=== PATIENT | female | born 1940 | race African-American/Black ===

== ENCOUNTER 2017-03-07 18:00 | Emergency (ER) | payer MEDICARE, OTHER ==
[2017-03-07 19:21] VITALS: BP 156/74
[2017-03-07 19:36] LABS: ABSOLUTE EOSINOPHILS # (AUTO) 0.1 10^3/uL (0.0-0.6); ABSOLUTE LYMPHOCYTES (AUTO) 1.8 10^3/uL (0.5-4.7); ABSOLUTE MONOCYTES (AUTO) 0.7 10^3/uL (0.1-1.4); BASOPHILS % (AUTO) 0.6 % (0-2); HEMOGLOBIN 13.1 g/dL (12.0-15.5); HGB HCT DIFFERENCE -1.7; LYMPHOCYTES % (AUTO) 27.3 % (13-45); MEAN CORPUSCULAR HEMOGLOBIN 27.6 pg (27.0-33.4); MEAN CORPUSCULAR HGB CONC 32.1 g/dL (32.0-36.0); MEAN CORPUSCULAR VOLUME 86 fl (80-97); MONOCYTES % (AUTO) 10.7 % (3-13); RED BLOOD COUNT 4.77 10^6/uL (3.72-5.28); RED CELL DISTRIBUTION WIDTH 15.1 % (11.5-14.0); SEGMENTED NEUTROPHILS % (AUTO) 60.4 % (42-78); WHITE BLOOD COUNT 6.7 10^3/uL (4.0-10.5)
[2017-03-07 19:55] LABS: ANION GAP 15 (5-19); BLOOD UREA NITROGEN 31 mg/dL (7-20); CALCIUM 10.5 mg/dL (8.4-10.2); CARBON DIOXIDE 28 mmol/L (22-30); CHLORIDE 98 mmol/L (98-107); CREATININE RESULT 1.44 mg/dL (0.52-1.25); GLUCOSE 124 mg/dL (75-110); POTASSIUM 4.2 mmol/L (3.6-5.0); SODIUM 141.1 mmol/L (137-145)
--- NOTE | 2017-03-07 20:16 | ER Document Report ---
ED General - General Chief Complaint: Dizziness Stated Complaint: DIZZINESS Time Seen by Provider: 03/07/17 18:45 TRAVEL OUTSIDE OF THE [place] IN LAST 30 DAYS: No - HPI Patient complains to provider of: Dizziness Notes: Patient had episode of dizziness seen today PCPs office blood pressure was elevated patient states increased stress is that she has mites in her house currently is undergoing construction they are going to remove the carpet in the next 24 hours and begin hardwood floors. Patient states this is displaced her from her home. Patient is very distressed about this patient states that she had a very short episode of dizziness room spinning around however currently now is more calm and quiet and symptoms have resolved. Patient denies any chest pain hip pain trauma nausea vomiting fevers or chills. - Related Data Allergies/Adverse Reactions: iodine [Iodine] Allergy (Intermediate, Verified 03/07/17 18:44) Hives Iodinated Contrast- Oral and IV Dye [IV Dye, Iodine Containing] Allergy ( Verified 03/07/17 18:44) Past Medical History - Social History Smoking Status: Never Smoker Chew tobacco use (# tins/day): No Frequency of alcohol use: None Drug Abuse: None Family History: Reviewed & Not Pertinent Patient has suicidal ideation: No Patient has homicidal ideation: No - Past Medical History Cardiac Medical History: Reports: Hx Hypercholesterolemia, Hx Hypertension Endocrine Medical History: Reports: Hx Diabetes Mellitus Type 2 Renal/ Medical History: Reports: Hx Kidney Stones. Denies: Hx Peritoneal Dialysis Past Surgical History: Reports: Hx Section - Immunizations Hx Diphtheria, Pertussis, Tetanus Vaccination: No Review of Systems - Review of Systems Constitutional: Other - Dizziness EENT: No symptoms reported Cardiovascular: No symptoms reported Respiratory: No symptoms reported Gastrointestinal: No symptoms reported Genitourinary: No symptoms reported Female Genitourinary: No symptoms reported Musculoskeletal: No symptoms reported Skin: No symptoms reported Hematologic/Lymphatic: No symptoms reported Neurological/Psychological: No symptoms reported Physical Exam - Vital signs Vitals: Temp Pulse Resp BP Pulse Ox 98.3 F 70 20 149/76 H 98 03/07/17 18:21 03/07/17 18:21 03/07/17 18:21 03/07/17 18:21 03/07/17 18:21 Interpretation: Normal - General General appearance: Appears well, Alert - HEENT Head: Normocephalic, Atraumatic Eyes: Normal Pupils: PERRL - Respiratory Respiratory status: No respiratory distress Chest status: Nontender Breath sounds: Normal Chest palpation: Normal - Cardiovascular Rhythm: Regular Heart sounds: Normal auscultation Murmur: No - Abdominal Inspection: Normal Distension: No distension Bowel sounds: Normal Tenderness: Nontender Organomegaly: No organomegaly - Back Back: Normal, Nontender - Extremities General upper extremity: Normal inspection, Nontender, Normal color, Normal ROM , Normal temperature General lower extremity: Normal inspection, Nontender, Normal color, Normal ROM , Normal temperature, Normal weight bearing. No: Devon's sign - Neurological Neuro grossly intact: Yes Cognition: Normal Orientation: AAOx4 Donna Coma Scale Eye Opening: Spontaneous Donna Coma Scale Verbal: Oriented Donna Coma Scale Motor: Obeys Commands Winsted Coma Scale Total: 15 Speech: Normal Motor strength normal: LUE, RUE, LLE, RLE Sensory: Normal - Psychological Associated symptoms: Normal affect, Normal mood - Skin Skin Temperature: Warm Skin Moisture: Dry Skin Color: Normal Course - Re-evaluation Re-evalutation: 03/07/17 20:15 Patient lab work that showed increase in the patient's creatinine more likely due to dehydration. Orthostatics were negative. Patient will be discharged home no acute cause of dizziness more likely to dehydration or stress. Patient is encouraged follow-up with her primary care physician. - Vital Signs Vital signs: Temp Pulse Resp BP Pulse Ox 98.3 F 74 20 156/74 H 98 03/07/17 18:21 03/07/17 19:18 03/07/17 18:21 03/07/17 19:18 03/07/17 18:21 - Laboratory Result Diagrams: 03/07/17 19:18 03/07/17 19:18 Laboratory results interpreted by me: 03/07/17 03/07/17 19:18 19:18 RDW 15.1 H BUN 31 H Creatinine 1.44 H Est GFR ( Amer) 43 L Est GFR (Non-Af Amer) 36 L Glucose 124 H Calcium 10.5 H Discharge - Discharge Clinical Impression: Transient dizziness Condition: Good Disposition: HOME, SELF-CARE Instructions: Dizziness ([facility]) Additional Instructions: Your laboratory data shows no acute pathology. The show signs of slight dehydration with a recommend drinking plenty of water. More likely her dizziness and elevated blood pressure today were caused by the amount of stress that you are under right now. However recommend following up with your primary care physician. Return to the ER symptoms worsen. Your lab work does not show any signs of serious infection cardiac ischemia or electrolyte abnormalities.
--- NOTE | 2017-03-07 21:51 | EKG REPORT ---
SEVERITY:- ABNORMAL ECG - SINUS RHYTHM LEFT VENTRICULAR HYPERTROPHY ABNORMAL T, CONSIDER ISCHEMIA, INFERIOR LEADS : Confirmed by: Warren Millan 07-Mar-2017 21:51:38
== END 2017-03-07 20:43 | disposition home or self-care (01) ==
LOC: ER 18:00
DX: R42 Dizziness and giddiness (principal); I10 Essential (primary) hypertension; E11.9 Type 2 diabetes mellitus without complications; Z91.041 Radiographic dye allergy status
CPT/HCPCS: 36415; 80048; 84484; 85025; 93005; 93010; 99284

== ENCOUNTER → 2017-03-25 | Outpatient (CLI) | payer MEDICARE, OTHER | LOC: OD 16:07 | PROVIDERS: ATTEND Internal Medicine | DX: T78.40XD Allergy, unspecified, subsequent encounter (principal) | CPT/HCPCS: 36415; 86003 ==

== ENCOUNTER → 2017-04-16 | Outpatient (CLI) | payer MEDICARE, OTHER ==
--- NOTE | 2017-04-16 14:48 | WOMENS IMAGING REPORT ---
EXAM DESCRIPTION: 3D DX MAMMO BILAT COMPLETED DATE/TIME: 04/16/2017 10:49 am REASON FOR STUDY: HX OF BERAST CA; 1 YEAR FOLLOW UP COMPARISON: Multiple since 2011 TECHNIQUE: Standard craniocaudal and mediolateral oblique views of each breast recorded using digita l acquisition and breast tomosynthesis. Additional left breast 90 mediolateral view, left breast compression magnification views in the CC a nd MLO orientation LIMITATIONS: None. FINDINGS: RIGHT BREAST MASSES: No suspicious masses. CALCIFICATIONS: No new or suspicious calcifications. ARCHITECTURAL DISTORTION: None. DEVELOPING DENSITY: None. ASYMMETRY: None noted. OTHER: No other significant findings. LEFT BREAST MASSES: No suspicious masses. CALCIFICATIONS: No new or suspicious calcifications. ARCHITECTURAL DISTORTION: None. DEVELOPING DENSITY: None. ASYMMETRY: None noted. OTHER: There is left breast skin thickening post radiation therapy. Surgical clips in the far medial left breast Read with the assistance of CAD: .[facility] - R2 Cenova Version 1.3 .[facility] - R2 Cenova Version 1.3 .[facility] - R2 Cenova Version 2.4 [place] [place] Cenova Version 2.4 .[facility] - R2 Measurement Psychologist Version 9.2 IMPRESSION: No mammographic/tomosynthesis evidence for malignancy BREAST DENSITY: b. There are scattered areas of fibroglandular density. BIRAD: 2 Benign findings. RECOMMENDATION: RECOMMENDED FOLLOW UP: Please continue right breast screening, left breast diagnosti c mammograms/ tomosynthesis in April 2018 SPECIFIC INTERVENTION/IMAGING/CONSULTATION RECOMMENDED:No additional intervention/ imaging/consultati on needed at this time. COMMUNICATION:The negative/benign results were communicated to the patient. COMMENT: The patient has been notified of the results by letter per SA requirements. Additional no tification policies are in place for contacting patient with suspicious or incomplete findings. Quality ID #225: The [employer] recommends an annual screening mammogram for women aged 40 years or over. This facility utilizes a reminder system to ensure that all patients receive reminder letters, and/or direct phone calls for appointments. This includes reminders for routine scr eening mammograms, diagnostic mammograms, or other Breast Imaging Interventions when appropriate. Th is patient will be placed in the appropriate reminder system. The [employer] (ACR) has developed recommendations for screening MRI of the breast s in certain patient populations, to be used in conjunction with mammography. Breast MRI surveillanc e may be appropriate for women with more than 20% lifetime risk of developing breast cancer as deter mined by genetic testing, significant family history of the disease, or history of mantle radiation f or Hodgkins Disease. ACR Practice Guidelines 2008. DBT Technology DBT is a type of tomographic mammography. With conventional mammography, overlapping breast tissue ma y make lesions difficult to detect, even with good compression. DBT uses an x-ray tube that rotates a round the breast, taking images at different angles. These images are then combined to create thin sl ices of the breast that the radiologist can view as a 3D reconstruction. The Flowdock unit can perform full-field digital mammograms (2D imaging); or DBT (3D imaging); or both, in a combination mode that quickly performs both the mammogram and the tomosynthesis scan while the breast is still compressed. PQRS 6045F: Fluoroscopic imaging is not utilized for breast tomosynthesis. TECHNICAL DOCUMENTATION: FINDING NUMBER: (1) ASSESSMENT: (1) JOB ID: [id number] [employer]- All Rights Reserved
== END ==
LOC: WI 10:01
PROVIDERS: ATTEND Surgery
DX: Z08 Encounter for follow-up examination after completed treatment for malignant neoplasm (principal); Z85.3 Personal history of malignant neoplasm of breast
CPT/HCPCS: G0279; G0204; 77062; 77066

== ENCOUNTER 2017-12-07 17:50 | Emergency (ER) | payer MEDICARE, OTHER ==
--- NOTE | 2017-12-07 18:45 | ER Document Report ---
ED General - General Chief Complaint: Abdominal Pain Stated Complaint: ABDOMINAL PAIN Time Seen by Provider: 12/07/17 18:24 Notes: Patient is a 77-year-old female with past medical history of hypertension, hyperlipidemia, [id number] diabetes, who presents with 1-2 months of progressively worsening lower abdominal pain. She does describe this as a constant, aching, throbbing, cramping pain that sometimes worsens depending upon the position which she is currently maintaining. She has not noted that anything improves the pain. She denies any association with eating food or drinking fluids. She denies any vaginal bleeding, dysuria, vaginal discharge, melena, but does note that she intermittently has small amounts of blood on her stool if she has a firm bowel movement. She states that she has a long standing history of this issue related to hemorrhoids and that this is not new or different since the pain started. She denies any unintentional weight loss, vomiting or diarrhea. She has not followed up with her doctor regarding this issue. TRAVEL OUTSIDE OF THE [place] IN LAST 30 DAYS: No - Related Data Allergies/Adverse Reactions: iodine [Iodine] Allergy (Intermediate, Verified 12/07/17 17:51) Hives Iodinated Contrast- Oral and IV Dye [IV Dye, Iodine Containing] Allergy ( Verified 12/07/17 17:51) Past Medical History - General Information source: Patient - Social History Smoking Status: Never Smoker Chew tobacco use (# tins/day): No Frequency of alcohol use: None Drug Abuse: None Lives with: Family Family History: Reviewed & Not Pertinent Patient has suicidal ideation: No Patient has homicidal ideation: No - Past Medical History Cardiac Medical History: Reports: Hx Hypercholesterolemia, Hx Hypertension Endocrine Medical History: Reports: Hx Diabetes Mellitus Type 2 Renal/ Medical History: Reports: Hx Kidney Stones. Denies: Hx Peritoneal Dialysis Past Surgical History: Reports: Hx Section - Immunizations Hx Diphtheria, Pertussis, Tetanus Vaccination: No Review of Systems - Review of Systems Notes: Constitutional: Negative for fever. HENT: Negative for sore throat. Eyes: Negative for visual changes. Cardiovascular: Negative for chest pain. Respiratory: Negative for shortness of breath. Gastrointestinal: Positive for abdominal pain Genitourinary: Negative for dysuria. Musculoskeletal: Negative for back pain. Skin: Negative for rash. Neurological: Negative for headaches, weakness or numbness. 10 point ROS negative except as marked above and in HPI. Physical Exam - Vital signs Vitals: Temp Pulse Resp BP Pulse Ox 98.2 F 91 18 141/72 H 97 12/07/17 17:55 12/07/17 17:55 12/07/17 17:55 12/07/17 17:55 12/07/17 17:55 Interpretation: Normal Notes: PHYSICAL EXAMINATION: GENERAL: Well-appearing, well-nourished and in no acute distress. HEAD: Atraumatic, normocephalic. EYES: Pupils equal round and reactive to light, extraocular movements intact, sclera anicteric, conjunctiva are normal. ENT: nares patent, oropharynx clear without exudates. Moist mucous membranes. NECK: Normal range of motion, supple without lymphadenopathy LUNGS: Breath sounds clear to auscultation bilaterally and equal. No wheezes rales or rhonchi. HEART: Regular rate and rhythm without murmurs ABDOMEN: Soft, palpable, firm uterus just below the level of the umbilicus that is tender to palpation. No other localized areas of tenderness. Normoactive bowel sounds. No guarding, no rebound. No masses appreciated. EXTREMITIES: Normal range of motion, no pitting or edema. No cyanosis. NEUROLOGICAL: No focal neurological deficits. Moves all extremities spontaneously and on command. PSYCH: Normal mood, normal affect. SKIN: Warm, Dry, normal turgor, no rashes or lesions noted. Course - Re-evaluation Re-evalutation: 12/07/17 18:44 Patient presents with 1-2 months of progressively worsening lower abdominal pain. On examination the patient has a palpable uterus just below the level of the umbilicus that is exquisitely tender to palpation. This would be quite abnormal and a 77-year-old female and is concerning for uterine malignancy. Patient denies any vaginal bleeding. Although in triage the patient had noted some rectal bleeding she is clear to state that this happens only when she has a firm bowel movement and that she has known history of hemorrhoids. Remainder of her abdominal exam is without any focal tenderness, rebound or guarding. She is otherwise very well in appearance. She notes that nothing is overall different about her symptoms today that prompted a visit to the emergency department. Will proceed with an ultrasound of the pelvis to further evaluate the uterus, basic labs and reassess the patient. 12/07/17 19:54 Transvaginal ultrasound shows that the uterus is apparently not enlarged by ultrasound criteria low free fluid is noted in the pelvis again which will be abnormal for this patient's age. Will proceed with CT of the abdomen pelvis without IV or oral contrast that she has an allergy to both forms of contrast. Labs do demonstrate a mild acute on chronic kidney injury. Will also provide 500 cc of IV fluid. 12/07/17 21:21 CT abdomen pelvis does unfortunately show no carcinomatosis likely [facility] initial source. I have discussed this case with Dr. Rinku Tillman who would like to see the patient in the office first thing in the morning to refer her to [facility] oncology. I have informed the patient of this unfortunate diagnosis and the need for urgent follow-up. She has verbalized understanding and states that she will contact Dr. Tillman's office first thing in the morning to schedule an appointment for tomorrow. At this time will discharge with return precautions and follow-up recommendations. Verbal discharge instructions given a the bedside and opportunity for questions given. Medication warnings reviewed. Patient is in agreement with this plan and has verbalized understanding of return precautions and the need for primary care follow-up in the next 24-72 hours. - Vital Signs Vital signs: Temp Pulse Resp BP Pulse Ox 98.2 F 91 18 141/72 H 97 12/07/17 17:55 12/07/17 17:55 12/07/17 17:55 12/07/17 17:55 12/07/17 17:55 - Laboratory Result Diagrams: 12/07/17 18:14 12/07/17 18:14 Laboratory results interpreted by me: 12/07/17 12/07/17 12/07/17 18:14 18:14 18:48 Hgb 10.8 L Hct 34.1 L MCH 26.2 L MCHC 31.7 L RDW 15.3 H Monocytes % 13.1 H BUN 21 H Creatinine 1.79 H Est GFR ( Amer) 33 L Est GFR (Non-Af Amer) 28 L Glucose 123 H AST 42 H Urine Protein 30 H Urine Glucose (UA) >=500 H Urine Ascorbic Acid 20 H Discharge - Discharge Clinical Impression: Peritoneal carcinomatosis, Lower abdominal pain Condition: Good Disposition: HOME, SELF-CARE Additional Instructions: Unfortunately, your workup today seems to suggest that you have cancer. The diagnosis at this time point is likely peritoneal carcinomatosis most likely originating either from a cancer in her uterus or your ovaries. I have discussed your case with Dr. Rinku Tillman our [facility] doctor telephone surveyor. Please contact his office first thing tomorrow morning as he would like to see you and refer you to a [facility] oncologist. For your pain I would take 1000 mg every 6 hours as needed of Tylenol. He should return to the emergency department immediately if you develop a fever greater than 100.4F, persistent vomiting, worsening pain, pass out, or have any other symptoms that are worrisome to you. Referrals: TURNER DARDEN MD [Primary Care Provider] - Follow up as needed RICKY TILLMAN MD [ACTIVE STAFF] - Follow up tomorrow
[2017-12-07 19:04] LABS: ABSOLUTE BASOPHILS # (AUTO) 0.1 10^3/uL (0.0-0.2); ABSOLUTE EOSINOPHILS # (AUTO) 0.1 10^3/uL (0.0-0.6); ABSOLUTE LYMPHOCYTES (AUTO) 2.4 10^3/uL (0.5-4.7); ABSOLUTE MONOCYTES (AUTO) 1.1 10^3/uL (0.1-1.4); ABSOLUTE NEUT (AUTO) 4.5 10^3/uL (1.7-8.2); HEMATOCRIT 34.1 % (36.0-47.0); HEMOGLOBIN 10.8 g/dL (12.0-15.5); LYMPHOCYTES % (AUTO) 29.7 % (13-45); MEAN CORPUSCULAR HEMOGLOBIN 26.2 pg (27.0-33.4); MEAN CORPUSCULAR HGB CONC 31.7 g/dL (32.0-36.0); MEAN CORPUSCULAR VOLUME 83 fl (80-97); MONOCYTES % (AUTO) 13.1 % (3-13); PLATELET COUNT 327 10^3/uL (150-450); RED BLOOD COUNT 4.14 10^6/uL (3.72-5.28); RED CELL DISTRIBUTION WIDTH 15.3 % (11.5-14.0); SEGMENTED NEUTROPHILS % (AUTO) 55.2 % (42-78); TOTAL CELLS COUNTED % (AUTO) 100 %; WHITE BLOOD COUNT 8.1 10^3/uL (4.0-10.5)
[2017-12-07 19:06] LABS: APPEARANCE,URINE SLIGHTLY-CLOUDY; BILIRUBIN,URINE NEGATIVE (NEGATIVE); COLOR,URINE YELLOW; GLUCOSE, URINE >=500 mg/dL (NEGATIVE); KETONES,URINE NEGATIVE (NEGATIVE); LEUKOCYTE ESTERASE,URINE NEGATIVE (NEGATIVE); NITRITE,URINE NEGATIVE (NEGATIVE); PROTEIN,URINE 30 mg/dL (NEGATIVE); URINE SPECIFIC GRAVITY 1.018; UROBILINOGEN,URINE NEGATIVE mg/dL (<2.0)
[2017-12-07 19:21] LABS: ALANINE AMINOTRANSFERASE 39 U/L (9-52); ALBUMIN 3.9 g/dL (3.5-5.0); ALKALINE PHOSPHATASE 120 U/L (38-126); ANION GAP 17 (5-19); ASPARTATE AMINO TRANSFERASE 42 U/L (14-36); BILIRUBIN,DIRECT 0.4 mg/dL (0.0-0.4); BILIRUBIN,TOTAL 0.4 mg/dL (0.2-1.3); BLOOD UREA NITROGEN 21 mg/dL (7-20); CALCIUM 9.9 mg/dL (8.4-10.2); CARBON DIOXIDE 25 mmol/L (22-30); CHLORIDE 101 mmol/L (98-107); GLUCOSE 123 mg/dL (75-110); LIPASE 155.8 U/L (23-300); POTASSIUM 4.3 mmol/L (3.6-5.0); SODIUM 142.6 mmol/L (137-145); TOTAL PROTEIN 7.5 g/dL (6.3-8.2)
--- NOTE | 2017-12-07 19:21 | RADIOLOGY REPORT (SQ) ---
EXAM DESCRIPTION: U/S NON OB PEL TV W/DOPPLER COMPLETED DATE/TIME: 12/07/2017 7:08 pm REASON FOR STUDY: Palpable uterus on exam, pain COMPARISON: None. TECHNIQUE: Dynamic and static grayscale images acquired of the pelvis via transvaginal approach and recorded on PACS. Additional selected color Doppler and spectral images recorded. LIMITATIONS: None. FINDINGS: UTERUS: Contour normal. No mass. ENDOMETRIAL STRIPE: No focal or generalized thickening. No masses. CERVIX: No nabothian cysts. RIGHT OVARY AND DOPPLER: Ovary not visualized. LEFT OVARY AND DOPPLER: Ovary not visualized. FREE FLUID: Moderate free fluid with single septation. OTHER: No other significant finding. MEASUREMENTS: UTERUS: 10.0 x 6.1 x 5.5 cm ENDOMETRIAL STRIPE: 4 mm RIGHT OVARY: Not visualized. LEFT OVARY: Not visualized. IMPRESSION: Moderate free fluid in the pelvis, nonspecific. Ovaries not identified. TECHNICAL DOCUMENTATION: JOB ID: [id number] [employer]- All Rights Reserved Rev Reading location - IP/workstation name: [email or web address]
[2017-12-07] MEDS ORDERED: RINGERS SOLUTION,LACTATED 500 ML IV ONE (19:54)
--- NOTE | 2017-12-07 20:55 | RADIOLOGY REPORT (SQ) ---
EXAM DESCRIPTION: CT ABD/PELVIS NO ORAL OR IV COMPLETED DATE/TIME: 12/07/2017 8:41 pm REASON FOR STUDY: free fluid pelvis, ab mass COMPARISON: None. TECHNIQUE: CT scan of the abdomen and pelvis performed without intravenous or oral contrast. Images reviewed with lung, soft tissue, and bone windows. Reconstructed coronal and sagittal MPR images revi ewed. All images stored on PACS. All CT scanners at this facility use dose modulation, iterative reconstruction, and/or weight based d osing when appropriate to reduce radiation dose to as low as reasonably achievable (ALARA). [facility]: Dose Right [facility]: CareDose [facility]: Dose Right [facility]: Teradose 4D [facility]: [employer] RADIATION DOSE: mGy. LIMITATIONS: None. FINDINGS: LOWER CHEST: No significant findings. No nodules or infiltrates. NON-CONTRASTED LIVER, SPLEEN, ADRENALS: Evaluation limited by lack of IV contrast. No identified sign ificant masses. PANCREAS: No masses. No peripancreatic inflammatory changes. GALLBLADDER: No identified stones by CT criteria. No inflammatory changes to suggest cholecystitis. RIGHT KIDNEY AND URETER: No suspicious masses. Assessment limited by lack of IV contrast. No signif icant calcifications. Mild dilatation of the renal pelvis. LEFT KIDNEY AND URETER: No suspicious masses. Assessment limited by lack of IV contrast. No signifi cant calcifications. Mild dilatation of the renal pelvis. AORTA AND RETROPERITONEUM: No aneurysm. No retroperitoneal masses or adenopathy. BOWEL AND PERITONEAL CAVITY: Omental caking. Small amount of ascites. No bulky adenopathy. No free air. APPENDIX: Not visualized. PELVIS, BLADDER, AND ABDOMINAL WALL:Small amount of free fluid. Normal urinary bladder. BONES: No acute findings. OTHER: No other significant finding. IMPRESSION: Findings suspicious for peritoneal carcinomatosis. No obvious primary although gynecolo gic suspected. COMMENT: Quality ID # [id number]: Final reports with documentation of one or more dose reduction techniques (e.g., Automated exposure control, adjustment of the mA and/or kV according to patient size, use of iterative reconstruction technique) TECHNICAL DOCUMENTATION: JOB ID: [id number] [employer]- All Rights Reserved Reading location - IP/workstation name: [email or web address] [id number]
[2017-12-07 23:52] VITALS: BP 128/63
== END 2017-12-07 22:35 | disposition home or self-care (01) ==
LOC: ER 17:50
DX: R10.30 Lower abdominal pain, unspecified (principal); C78.6 Secondary malignant neoplasm of retroperitoneum and peritoneum; I10 Essential (primary) hypertension; E11.9 Type 2 diabetes mellitus without complications; E78.00 Pure hypercholesterolemia, unspecified; Z79.4 Long term (current) use of insulin; Z87.442 Personal history of urinary calculi
CPT/HCPCS: 36415; 74176; 76830; 80053; 81001; 83605; 83690; 85025; 93976; 99284

== ENCOUNTER 2017-12-10 07:22 | Inpatient (IN) | payer MEDICARE, OTHER ==
--- NOTE | 2017-12-10 07:27 | ER Document Report ---
ED General Pain - General Stated Complaint: ABDOMINAL PAIN Time Seen by Provider: 12/10/17 07:26 Mode of Arrival: Medic Information source: Patient TRAVEL OUTSIDE OF THE [place] IN LAST 30 DAYS: No - Related Data Allergies/Adverse Reactions: iodine [Iodine] Allergy (Intermediate, Verified 12/07/17 17:51) Hives Iodinated Contrast- Oral and IV Dye [IV Dye, Iodine Containing] Allergy ( Verified 12/07/17 17:51) Past Medical History - Social History Family History: Reviewed & Not Pertinent - Past Medical History Cardiac Medical History: Reports: Hx Hypercholesterolemia, Hx Hypertension Endocrine Medical History: Reports: Hx Diabetes Mellitus Type 2 Renal/ Medical History: Reports: Hx Kidney Stones. Denies: Hx Peritoneal Dialysis Past Surgical History: Reports: Hx Section - Immunizations Hx Diphtheria, Pertussis, Tetanus Vaccination: No Discharge - Discharge Referrals: TURNER DARDEN MD [Primary Care Provider] - Follow up as needed
--- NOTE | 2017-12-10 07:30 | ER Document Report ---
ED GI/ - General Chief Complaint: Abdominal Pain Stated Complaint: ABDOMINAL PAIN Time Seen by Provider: 12/10/17 07:26 Mode of Arrival: Medic Information source: Patient Notes: 77-year-old female with hx hypertension, breast CA, hyperlipidemia, non-insulin- dependent diabetes, who presents with 1-2 months of progressively worsening generalized abdominal pain. She was seen Friday in the emergency department and the CT scan showed findings suspicious for peritoneal carcinomatosis with small amount of ascites. No chest pain or shortness of breath. No leg pain. No fever. Tylenol is not relieving the pain. She was nauseated this am but no vomiting or diarrhea. TRAVEL OUTSIDE OF THE [place] IN LAST 30 DAYS: No - Related Data Allergies/Adverse Reactions: iodine [Iodine] Allergy (Intermediate, Verified 12/07/17 17:51) Hives Iodinated Contrast- Oral and IV Dye [IV Dye, Iodine Containing] Allergy ( Verified 12/07/17 17:51) Past Medical History - General Information source: Patient - Social History Smoking Status: Unknown if Ever Smoked Frequency of alcohol use: None Drug Abuse: None Lives with: Family Family History: Reviewed & Not Pertinent - Past Medical History Cardiac Medical History: Reports: Hx Hypercholesterolemia, Hx Hypertension Endocrine Medical History: Reports: Hx Diabetes Mellitus Type 2 Renal/ Medical History: Reports: Hx Kidney Stones. Denies: Hx Peritoneal Dialysis Past Surgical History: Reports: Hx Section - Immunizations Hx Diphtheria, Pertussis, Tetanus Vaccination: No Review of Systems - Review of Systems Constitutional: No symptoms reported EENT: No symptoms reported Cardiovascular: No symptoms reported Respiratory: No symptoms reported Gastrointestinal: See HPI Genitourinary: No symptoms reported Female Genitourinary: No symptoms reported Musculoskeletal: No symptoms reported Skin: No symptoms reported Hematologic/Lymphatic: No symptoms reported Neurological/Psychological: No symptoms reported Physical Exam - Vital signs Vitals: Temp Pulse Resp BP Pulse Ox 99.9 F 100 28 H 142/109 H 93 12/10/17 07:31 12/10/17 07:31 12/10/17 07:31 12/10/17 07:31 12/10/17 07:31 Interpretation: Normal - General General appearance: Appears well, Alert - HEENT Head: Normocephalic, Atraumatic Eyes: Normal Conjunctiva: Normal Pupils: PERRL Pharynx: Normal Neck: Supple. No: Lymphadenopathy - Respiratory Respiratory status: No respiratory distress Chest status: Nontender Breath sounds: Rales - few crackels left base Chest palpation: Normal - Cardiovascular Rhythm: Regular Heart sounds: Normal auscultation Murmur: No - Abdominal Inspection: Normal Distension: No distension Bowel sounds: Normal Tenderness: Tender - diffusely Organomegaly: No organomegaly - Back Back: Normal, Nontender. No: CVA tenderness - Extremities General upper extremity: Normal inspection, Nontender, Normal color, Normal ROM , Normal temperature General lower extremity: Normal inspection, Nontender, Normal color, Normal ROM , Normal temperature, Normal weight bearing. No: Devon's sign - Neurological Neuro grossly intact: Yes Cognition: Normal Orientation: AAOx4 Donna Coma Scale Eye Opening: Spontaneous [place] Coma Scale Verbal: Oriented [place] Coma Scale Motor: Obeys Commands [place] Coma Scale Total: 15 Speech: Normal Motor strength normal: LUE, RUE, LLE, RLE Sensory: Normal - Psychological Associated symptoms: Normal affect, Normal mood - Skin Skin Temperature: Warm Skin Moisture: Dry Skin Color: Normal Skin irregularity: negative: Rash Course - Re-evaluation Re-evalutation: 12/10/17 12:00 Patient does not have any more abdominal pain but she is breathing shallowly. With no oxygen her pulse ox is 92-93%. She does decrease her respiratory rate from 30 down to 20 when she is on her left side. I do hear crackles at her left base at this time we will add another chest x-ray. CBC is normal. Urine is negative for infection. Her acute abdomen was negative. Her chemistry is basically the same as it was the other day with some renal insufficiency. 12/10/17 12:[address] coker. get CTA at this point. canceled the bedside CXR 12/10/17 16:58 The VQ scan is negative. She is still tachypneic and her pulse ox is 96% on 2 L of nasal cannula. I called Dr. Rocha for admission for hypoxemia and he wants me to get an ABG on room air which I will do. Her abdominal pain is returning. 12/10/17 18:11 Oxygen dropped to 87% on room air which we replaced after the ABG was drawn. 12/10/17 18:40 Dr. Rocha will admit the patient IMCU for hypoexemia O2 55 room air. The patient's oxygen is 96% on 2 L nasal cannula she is comfortable at this time after the repeat morphine 2 mg IV. The family is at the bedside. 12/10/17 19:16 Discussed patient with Tyrone PERES since the patient still in the emergency department, so he is aware of the patient prior to her bed placement. - Vital Signs Vital signs: Temp Pulse Resp BP Pulse Ox 97.9 F 100 37 H 104/64 97 12/10/17 18:57 12/10/17 07:31 12/10/17 16:46 12/10/17 16:46 12/10/17 16:46 - Laboratory Result Diagrams: 12/10/17 07:15 12/10/17 07:15 Laboratory results interpreted by me: 12/10/17 12/10/17 12/10/17 07:15 07:15 09:50 Hgb 11.2 L Hct 35.3 L MCH 25.9 L MCHC 31.6 L RDW 15.4 H PT Carbonic Acid ABG pH ABG pCO2 ABG pO2 ABG HCO3 ABG Total CO2 ABG O2 Saturation VBG HCO3 BUN 24 H Creatinine 1.63 H Est GFR ( Amer) 37 L Est GFR (Non-Af Amer) 31 L Glucose 197 H POC Glucose AST 50 H Urine Glucose (UA) >=500 H Urine Ketones TRACE H 12/10/17 12/10/17 12/10/17 10:17 13:41 17:50 Hgb Hct MCH MCHC RDW PT 20.2 H Carbonic Acid 0.99 L ABG pH 7.34 L ABG pCO2 33.0 L ABG pO2 54.5 L ABG HCO3 17.2 L ABG Total CO2 18.3 L ABG O2 Saturation 86.8 L VBG HCO3 19.7 L BUN Creatinine Est GFR ( Amer) Est GFR (Non-Af Amer) Glucose POC Glucose AST Urine Glucose (UA) Urine Ketones 12/10/17 17:59 Hgb Hct MCH MCHC RDW PT Carbonic Acid ABG pH ABG pCO2 ABG pO2 ABG HCO3 ABG Total CO2 ABG O2 Saturation VBG HCO3 BUN Creatinine Est GFR ( Amer) Est GFR (Non-Af Amer) Glucose POC Glucose 269 H AST Urine Glucose (UA) Urine Ketones Discharge - Discharge Clinical Impression: Hypoxemia, Abdominal pain, Peritoneal carcinomatosis Condition: Fair Disposition: ADMITTED INPATIENT Admitting Provider: Aj Unit Admitted: [facility]
[2017-12-10] MEDS ORDERED: MORPHINE SULFATE 10 MG/ML INJ IV ONE ×4 (07:39→16:56)
[2017-12-10] MEDS ORDERED: NORMAL SALINE 1000 ML 1,000 ML IV ONE ×3 (07:43→13:40)
[2017-12-10 07:56] LABS: ABSOLUTE LYMPHOCYTES (AUTO) 1.6 10^3/uL (0.5-4.7); ABSOLUTE MONOCYTES (AUTO) 0.1 10^3/uL (0.1-1.4); ABSOLUTE NEUT (AUTO) 2.6 10^3/uL (1.7-8.2); BASOPHILS % (AUTO) 0.7 % (0-2); EOSINOPHILS % (AUTO) 0.4 % (0-6); HEMATOCRIT 35.3 % (36.0-47.0); HEMOGLOBIN 11.2 g/dL (12.0-15.5); LYMPHOCYTES % (AUTO) 36.3 % (13-45); MEAN CORPUSCULAR HEMOGLOBIN 25.9 pg (27.0-33.4); MEAN CORPUSCULAR HGB CONC 31.6 g/dL (32.0-36.0); MEAN CORPUSCULAR VOLUME 82 fl (80-97); MONOCYTES % (AUTO) 3.3 % (3-13); PLATELET COUNT 355 10^3/uL (150-450); RED BLOOD COUNT 4.31 10^6/uL (3.72-5.28); RED CELL DISTRIBUTION WIDTH 15.4 % (11.5-14.0); SEGMENTED NEUTROPHILS % (AUTO) 59.3 % (42-78); TOTAL CELLS COUNTED % (AUTO) 100 %; WHITE BLOOD COUNT 4.3 10^3/uL (4.0-10.5)
[2017-12-10 08:35] LABS: ALANINE AMINOTRANSFERASE 32 U/L (9-52); ALBUMIN 3.7 g/dL (3.5-5.0); ALKALINE PHOSPHATASE 111 U/L (38-126); ANION GAP 15 (5-19); ASPARTATE AMINO TRANSFERASE 50 U/L (14-36); BILIRUBIN,DIRECT 0.4 mg/dL (0.0-0.4); BILIRUBIN,TOTAL 0.4 mg/dL (0.2-1.3); BLOOD UREA NITROGEN 24 mg/dL (7-20); CALCIUM 9.6 mg/dL (8.4-10.2); CARBON DIOXIDE 24 mmol/L (22-30); CHLORIDE 102 mmol/L (98-107); GLUCOSE 197 mg/dL (75-110); POTASSIUM 4.1 mmol/L (3.6-5.0); SODIUM 140.5 mmol/L (137-145); TOTAL PROTEIN 7.2 g/dL (6.3-8.2)
--- NOTE | 2017-12-10 09:26 | RADIOLOGY REPORT (SQ) ---
EXAM DESCRIPTION: ACUTE ABDOMEN SERIES COMPLETED DATE/TIME: 12/10/2017 9:15 am REASON FOR STUDY: abd pain COMPARISON: None. NUMBER OF VIEWS: Three views. TECHNIQUE: Frontal chest, supine abdomen and upright/decubitus abdomen radiographic images acquired. LIMITATIONS: None. FINDINGS: CHEST: Low lung volumes. Lungs clear of infiltrates. FREE AIR: None. No abnormal gas collections. BOWEL GAS PATTERN: Nonobstructive pattern. No dilated loops or air fluid levels. CALCIFICATIONS: No suspicious calcifications. HARDWARE: None in the abdomen. SOFT TISSUES: No gross mass or suggestion of organomegaly. BONES: No acute fracture. No worrisome bone lesions. OTHER: No other significant finding. IMPRESSION: NO RADIOGRAPHIC EVIDENCE FOR ACUTE ABDOMINAL DISEASE. TECHNICAL DOCUMENTATION: JOB ID: [id number] [employer]- All Rights Reserved Reading location - IP/workstation name: [email or web address]
[2017-12-10 10:44] LABS: VENOUS BLOOD BASE EXCESS -6.3 mmol/L; VENOUS BLOOD HCO3 19.7 mmol/L (20-32); VENOUS BLOOD PCO2 40.7 mmHg (35-63); VENOUS BLOOD PH 7.3 (7.30-7.42)
[2017-12-10 11:18] LABS: APPEARANCE,URINE CLEAR; BILIRUBIN,URINE NEGATIVE (NEGATIVE); COLOR,URINE YELLOW; GLUCOSE, URINE >=500 mg/dL (NEGATIVE); KETONES,URINE TRACE mg/dL (NEGATIVE); LEUKOCYTE ESTERASE,URINE NEGATIVE (NEGATIVE); NITRITE,URINE NEGATIVE (NEGATIVE); PROTEIN,URINE NEGATIVE (NEGATIVE); URINE SPECIFIC GRAVITY 1.017; UROBILINOGEN,URINE NEGATIVE mg/dL (<2.0)
--- NOTE | 2017-12-10 12:36 | RADIOLOGY REPORT (SQ) ---
EXAM DESCRIPTION: CHEST SINGLE VIEW COMPLETED DATE/TIME: 12/10/2017 12:27 pm REASON FOR STUDY: CP COMPARISON: 07/11/2014. EXAM PARAMETERS: NUMBER OF VIEWS: One view. TECHNIQUE: Single frontal radiographic view of the chest acquired. RADIATION DOSE: NA LIMITATIONS: None. FINDINGS: LUNGS AND PLEURA: Low lung volumes. No opacities, masses or pneumothorax. No pleural effu mary. MEDIASTINUM AND HILAR STRUCTURES: No masses. Contour normal. HEART AND VASCULAR STRUCTURES: Heart normal in size. Normal vasculature. BONES: No acute findings. HARDWARE: Surgical clips in the soft tissues. OTHER: No other significant finding. IMPRESSION: NO ACUTE RADIOGRAPHIC FINDING IN THE CHEST. TECHNICAL DOCUMENTATION: JOB ID: [id number] [employer] All Rights Reserved Reading location - IP/workstation name: [email or web address]
[2017-12-10 14:23] LABS: INTERNATIONAL RATION (INR) 1.64; PROTHROMBIN TIME 20.2 SEC (11.4-15.4)
--- NOTE | 2017-12-10 16:19 | RADIOLOGY REPORT (SQ) ---
EXAM DESCRIPTION: NM LUNG VENT/PERF SCAN COMPLETED DATE/TIME: 12/10/2017 3:59 pm REASON FOR STUDY: hypoxia tachypnea COMPARISON: Chest x-ray dated 12/10/2017. RADIONUCLIDE AND DOSE: 5.26 millicuries TC-99m MAA Intravenous 31.0 millicuries TC-99m DTPA Inhaled aerosol TECHNIQUE: Two views of the lungs acquired post ventilation of DTPA aerosol. Eight views of the helen gs acquired following injection of MAA. LIMITATIONS: Limited ventilation images. FINDINGS: VENTILATION: Symmetric and homogeneous distribution of DTPA aerosol during ventilatory pha se. No significant areas of photopenia. PERFUSION: Perfusion images with normal homogenous activity and no wedge-shaped or segmental defects. No ventilation-perfusion mismatches. OTHER: No other significant finding. IMPRESSION: NORMAL VENTILATION-PERFUSION LUNG SCAN. NEGATIVE FOR PULMONARY EMBOLI. TECHNICAL DOCUMENTATION: JOB ID: [id number] [employer]- All Rights Reserved Reading location - IP/workstation name: [email or web address]
[2017-12-10 18:13] LABS: ARTERIAL BLOOD BASE EXCESS -7.6 mmol/L; ARTERIAL BLOOD H2CO3 0.99 mmol/L (1.05-1.35); ARTERIAL BLOOD HCO3 17.2 mmol/L (20-26); ARTERIAL BLOOD O2 SATURATION 86.8 % (94-98); ARTERIAL BLOOD PH 7.34 (7.35-7.45); ARTERIAL BLOOD PO2 54.5 mmHg (80-100); ARTERIAL BLOOD TOTAL CO2 18.3 mmol/L (21-25)
[2017-12-10] MEDS ORDERED: DEXTROSE 50%-WATER 25 GM/50 ML DISP.SYRIN IV PRN ×2 (19:44)
[2017-12-10] MEDS ORDERED: GLUCAGON,HUMAN RECOMB 1 MG INJ IM PRN (19:44)
[2017-12-10] MEDS ORDERED: DEXTROSE 40% GEL 15 GM TUBE PO PRN ×2 (19:44)
[2017-12-10] MEDS ORDERED: INSULIN LISPRO 100 UNIT/ML 3 ML VIAL SUBCUT PRN (19:44)
[2017-12-10] MEDS ORDERED: PIPERACILLIN SODIUM/TAZOBACTAM 4.5 GM in NORMAL SALINE 100 ML IV SCH (19:45)
--- NOTE | 2017-12-10 20:03 | PDOC H&P ---
History of Present Illness Admission Date/PCP: 12/10/17 18:54 TURNER DARDEN MD History of Present Illness: MARYJANE LINDER is a 77 year old female, she has a history of type 2 diabetes mellitus, history of malignant neoplasm of the left breast that was treated successfully with chemotherapy, surgery and radiation therapy. She came to the emergency room for evaluation of abdominal pain on 12/07/2017, CAT scan of the abdomen and pelvis without contrast was done it showed omental caking with small amount of ascites the impression was that the finding was suspicious for peritoneal carcinomatosis, it was a limited study because of no contrast, she has a history of allergy to iodine, she was referred from the emergency room to cancer center in [place] she came to the emergency room today for evaluation of continued abdominal pain, emergency room she was evaluated she was found to have a low oxygen saturation on pulse oximetry arterial blood gas was done on FiO2 of 88%, pH 7.34 PO2 54.5 bicarbonate 17.2, PCO2 32. The chest x-ray that was done was negative for acute infiltrate a VQ scan was in the ER, it was negative for pulmonary embolism. I saw patient today in the emergency room, the abdomen is very tender to touch rebound tenderness suggestive of peritonitis , the cause of this is not clear. It seems that she had a ultrasound of the abdomen and pelvis when she presented initially on 12/07/2017 for evaluation of abdominal pain, the ultrasound showed moderate free fluid in the pelvis which is nonspecific the ovaries are not visualized, the endometrial stripe was 4 mm. Unfortunately we cannot give a contrast study that is necessary to further define the intra-abdominal lesion. I am concerned that she may be having any sepsis while she has up hypoxemia so far there is no pulmonary explanation for the hypoxemia is most likely from inadequate ventilation because of the peritonitis, she will be vigorously hydrated, consultation will also be requested from surgery for evaluation and she will be started empirically on IV antibiotic, a broad-spectrum antibiotic, Zosyn. Past Medical History Cardiac Medical History: Reports: Hyperlipidema, Hypertension Endocrine Medical History: Reports: Diabetes Mellitus Type 2 Hematology: Reports: Anemia Past Surgical History Past Surgical History: Reports: Section Social History Lives with: Family Smoking Status: Never Smoker Family History Family History: Reviewed & Not Pertinent Parental Family History Reviewed: Yes Children Family History Reviewed: Yes Sibling(s) Family History Reviewed.: Yes Medication/Allergy Home Medications: Amlodipine Besylate [Norvasc 2.5 mg Tablet] 2.5 mg PO DAILY 12/10/17 Aspirin [Ecotrin 81 mg EC Tablet] 81 mg PO DAILY 12/10/17 Atenolol [Tenormin 50 mg Tablet] 50 mg PO Q12 12/10/17 Clotrimazole/Betamethasone Dip [Clotrimazole-Betamethasone Crm] 1 applic TOP BID 12/10/17 Empagliflozin [Jardiance] 10 mg PO DAILY 12/10/17 Exemestane [Aromasin] 25 mg PO DAILY 12/10/17 Famotidine [Pepcid 40 mg Tablet] 40 mg PO DAILY 12/10/17 Fexofenadine HCl [Alba Allergy] 180 mg PO DAILYP PRN 12/10/17 Hydrochlorothiazide [Hydrodiuril 25 mg Tablet] 25 mg PO DAILY 12/10/17 Metformin HCl [Metformin HCl ER] 750 mg PO DAILY 12/10/17 Pravastatin Sodium [Pravachol] 40 mg PO DAILY 12/10/17 Ramipril [Altace 10 mg Capsule] 10 mg PO Q12 12/10/17 Sitagliptin Phosphate [Januvia] 100 mg PO DAILY 12/10/17 Allergies/Adverse Reactions: iodine [Iodine] Allergy (Intermediate, Verified 12/07/17 17:51) Hives Iodinated Contrast- Oral and IV Dye [IV Dye, Iodine Containing] Allergy ( Verified 12/07/17 17:51) Review of Systems Constitutional: ABSENT: chills, fever(s), headache(s), weight gain, weight loss Eyes: ABSENT: visual disturbances Ears: ABSENT: hearing changes Cardiovascular: ABSENT: as per HPI, chest pain, dyspnea on exertion, edema, orthropnea, palpitations, other Respiratory: ABSENT: cough, hemoptysis Gastrointestinal: PRESENT: abdominal pain Genitourinary: ABSENT: dysuria, hematuria Musculoskeletal: ABSENT: joint swelling Integumentary: ABSENT: rash, wounds Neurological: ABSENT: abnormal gait, abnormal speech, confusion, dizziness, focal weakness, syncope Psychiatric: ABSENT: anxiety, depression, homidical ideation, suicidal ideation Endocrine: ABSENT: cold intolerance, heat intolerance, menstrual abnormalities, polydipsia, polyuria Hematologic/Lymphatic: ABSENT: easy bleeding, easy bruising, lymphadenopathy Physical Exam Vital Signs: Temp Pulse Resp BP Pulse Ox 97.9 F 100 37 H 104/64 97 12/10/17 18:57 12/10/17 07:31 12/10/17 16:46 12/10/17 16:46 12/10/17 16:46 General appearance: PRESENT: no acute distress Head exam: PRESENT: atraumatic, normocephalic Eye exam: PRESENT: conjunctiva pink, EOMI, PERRLA Ear exam: PRESENT: normal external ear exam Mouth exam: PRESENT: moist, tongue midline Neck exam: PRESENT: full ROM Respiratory exam: PRESENT: clear to auscultation caio Cardiovascular exam: PRESENT: RRR, +S1, +S2 GI/Abdominal exam: PRESENT: rebound, tenderness Rectal exam: PRESENT: deferred Neurological exam: PRESENT: alert, CN II-XII grossly intact. ABSENT: motor sensory deficit Psychiatric exam: PRESENT: appropriate affect, normal mood Skin exam: PRESENT: dry, intact, warm Results Impressions: Chest X-Ray 12/10/17 00:00 IMPRESSION: NO ACUTE RADIOGRAPHIC FINDING IN THE CHEST. Acute Abdomen Series 12/10/17 08:36 IMPRESSION: NO RADIOGRAPHIC EVIDENCE FOR ACUTE ABDOMINAL DISEASE. Lung Scan-VQ NM 12/10/17 13:03 IMPRESSION: NORMAL VENTILATION-PERFUSION LUNG SCAN. NEGATIVE FOR PULMONARY EMBOLI. Assessment & Plan - Diagnosis (1) Peritonitis Is this a current diagnosis for this admission?: Yes Plan: She clinically has peritonitis, consultation will be ordered from surgery, contrast study could not be done because of allergy and also azotemia, MRI of the abdomen without contrast to be ordered (2) Metabolic acidosis Is this a current diagnosis for this admission?: Yes (3) Hypoxemia Is this a current diagnosis for this admission?: Yes (4) Acute kidney injury Is this a current diagnosis for this admission?: Yes Plan: She has acute kidney injury in the setting of peritonitis, this most likely prerenal or ATN we start IV fluid (5) Sepsis Qualifiers: Sepsis type: sepsis due to unspecified organism Qualified Code(s): A41.9 - Sepsis, unspecified organism Is this a current diagnosis for this admission?: Yes Plan: There is sign of early sepsis in this patient, signs of endorgan dysfunction, azotemia, hypoxemia start IV fluid
[2017-12-10 20:20] LABS: INTERNATIONAL RATION (INR) 1.67; PROTHROMBIN TIME 20.5 SEC (11.4-15.4)
[2017-12-10 20:21] LABS: PARTIAL THROMBOPLASTIN TIME 32.8 SEC (23.5-35.8)
[2017-12-10 20:43] LABS: CREATINE KINASE 46 U/L (30-135); LIPASE 53.6 U/L (23-300)
[2017-12-10 20:45] LABS: AMYLASE < 30 U/L (30-110)
[2017-12-10 20:56] LABS: CREATINE KINASE MB 0.31 ng/mL (<4.55); NT PRO BNP 2840 pg/mL (<450)
[2017-12-10 20:57] LABS: TROPONIN I < 0.012 ng/mL
[2017-12-10 21:00] LABS: FREE T4 (FREE THYROXINE) 1.55 ng/dL (0.78-2.19)
[2017-12-10 21:14] LABS: THYROID STIMULATING HORMONE 4.08 uIU/mL (0.47-4.68)
[2017-12-10] MEDS: NORMAL SALINE 1000 ML 1,000 ML IV PRN (22:22)
[2017-12-10] MEDS: HEPARIN SOD (PORCINE) 5,000 UNIT/ML 1 ML SYRINGE SUBCUT SCH (22:22)
[2017-12-11 02:31] LABS: HEMATOCRIT 35.1 % (36.0-47.0); MEAN CORPUSCULAR HGB CONC 31.4 g/dL (32.0-36.0); MEAN CORPUSCULAR VOLUME 83 fl (80-97); PLATELET COUNT 333 10^3/uL (150-450); RED BLOOD COUNT 4.23 10^6/uL (3.72-5.28); RED CELL DISTRIBUTION WIDTH 14.7 % (11.5-14.0)
[2017-12-11 02:33] LABS: WHITE BLOOD COUNT 12.4 10^3/uL (4.0-10.5)
[2017-12-11 02:42] LABS: ALANINE AMINOTRANSFERASE 34 U/L (9-52); ALBUMIN 2.8 g/dL (3.5-5.0); ALKALINE PHOSPHATASE 66 U/L (38-126); ANION GAP 12 (5-19); ASPARTATE AMINO TRANSFERASE 41 U/L (14-36); BILIRUBIN,DIRECT 0.7 mg/dL (0.0-0.4); BILIRUBIN,TOTAL 0.7 mg/dL (0.2-1.3); BLOOD UREA NITROGEN 31 mg/dL (7-20); CARBON DIOXIDE 21 mmol/L (22-30); CHLORIDE 107 mmol/L (98-107); CHOLESTEROL 107.46 mg/dL (0-200); GLUCOSE 238 mg/dL (75-110); SODIUM 140.1 mmol/L (137-145); TOTAL PROTEIN 5.8 g/dL (6.3-8.2); TRIGLYCERIDES 129 mg/dL (<150)
[2017-12-11 02:50] LABS: POTASSIUM 5.3 mmol/L (3.6-5.0)
[2017-12-11 02:56] LABS: CREATINE KINASE MB 0.91 ng/mL (<4.55)
[2017-12-11 03:03] LABS: DIRECT LDL < 30 mg/dL (<100); TROPONIN I < 0.012 ng/mL
[2017-12-11] MEDS ORDERED: MORPHINE SULFATE 10 MG/ML INJ ONE (05:13)
[2017-12-11] MEDS ORDERED: MORPHINE SULFATE 10 MG/ML INJ IV PRN (05:22)
[2017-12-11] MEDS: PIPERACILLIN SODIUM/TAZOBACTAM 3.375 GM in NORMAL SALINE 100 ML IV SCH ×5 (05:32→17:14)
[2017-12-11] MEDS: NORMAL SALINE 1000 ML 1,000 ML IV PRN (05:33)
[2017-12-11] MEDS: HEPARIN SOD (PORCINE) 5,000 UNIT/ML 1 ML SYRINGE SUBCUT SCH ×3 (05:38→20:14)
[2017-12-11] MEDS ORDERED: DEXTROSE 40% GEL 15 GM TUBE PO PRN ×2 (06:03)
[2017-12-11] MEDS ORDERED: GLUCAGON,HUMAN RECOMB 1 MG INJ SUBCUT PRN (06:03)
[2017-12-11] MEDS ORDERED: DEXTROSE 50%-WATER 25 GM/50 ML DISP.SYRIN IV PRN ×2 (06:03)
[2017-12-11] MEDS ORDERED: ERTAPENEM SODIUM INJ 1 GM VIAL IV ONE (06:18)
--- NOTE | 2017-12-11 08:13 | RADIOLOGY REPORT (SQ) ---
EXAM DESCRIPTION: MRI ABDOMEN WITHOUT COMPLETED DATE/TIME: 12/10/2017 9:38 pm REASON FOR STUDY: ? peritoneal carcinomatosis COMPARISON: None. TECHNIQUE: Axial T2 weighted images acquired. LIMITATIONS: The study cannot be completed due to patient claustrophobia. FINDINGS: There are several round masses in the liver. Ascites is present. IMPRESSION: LIMITED STUDY. SEVERAL ROUND MASSES IN THE LIVER CONSISTENT WITH METASTASES. ASCITES. THE STUDY COULD NOT BE COMPLETED DUE TO PATIENT CLAUSTROPHOBIA. THE STUDY WAS PERFORMED A STAT MR I AFTER HOURS AND SEDATION WAS UNAVAILABLE. TECHNICAL DOCUMENTATION: JOB ID: [id number] [employer]- All Rights Reserved Reading location - IP/workstation name: [email or web address]
--- NOTE | 2017-12-11 08:18 | PDOC CONSULTATION ---
History of Present Illness Admission Date/PCP: 12/10/17 18:54 TURNER DARDEN MD Patient complains of: Abdominal pain History of Present Illness: MARYJANE LINDER is a 77 year old female presenting with 1 month history of progressively worsening mid abdominal pain. Patient apparently has been having good bowel function with no changes in her bowel habits. She has been taking p.o. intake without emesis with only rare episodes of nausea. No fever. She has not had a colonoscopy for at least 5 years. However she does carry a diagnosis of anemia for which she takes iron. There is no family history of gastrointestinal malignancy nor [employer] malignancy. Her only prior surgery was a C- section in the remote past. Patient does have a history of breast cancer that was treated 5 years ago with breast conservation therapy along with chemotherapy. Patient had been seen in the ER several days ago and had underwent a noncontrasted CT scan that demonstrated evidence of carcinomatosis with undefined primary. Plans had been made to get her referred to [employer] oncology. However the pain worsened and she developed shortness of breath and she subsequently was admitted yesterday through primary care service. General surgery consultation now being obtained this morning for abdominal pain. Her VQ scan was negative. Past Medical History Cardiac Medical History: Reports: Hyperlipidema, Hypertension Pulmonary Medical History: Reports: None Endocrine Medical History: Reports: Diabetes Mellitus Type 2 Psychiatric Medical History: Denies: Depression Hematology: Reports: Anemia Past Surgical History Past Surgical History: Reports: Section Social History Lives with: Family Smoking Status: Never Smoker Frequency of Alcohol Use: None Hx Recreational Drug Use: No Drugs: None Hx Prescription Drug Abuse: No - Advance Directive Resuscitation Status: Full Code Family History Family History: Reviewed & Not Pertinent Parental Family History Reviewed: Yes Children Family History Reviewed: Yes Sibling(s) Family History Reviewed.: Yes - History of breast cancer Medication/Allergy Home Medications: Amlodipine Besylate [Norvasc 2.5 mg Tablet] 2.5 mg PO DAILY 12/10/17 Aspirin [Ecotrin 81 mg EC Tablet] 81 mg PO DAILY 12/10/17 Atenolol [Tenormin 50 mg Tablet] 50 mg PO Q12 12/10/17 Clotrimazole/Betamethasone Dip [Clotrimazole-Betamethasone Crm] 1 applic TOP BID 12/10/17 Empagliflozin [Jardiance] 10 mg PO DAILY 12/10/17 Exemestane [Aromasin] 25 mg PO DAILY 12/10/17 Famotidine [Pepcid 40 mg Tablet] 40 mg PO DAILY 12/10/17 Fexofenadine HCl [Alba Allergy] 180 mg PO DAILYP PRN 12/10/17 Hydrochlorothiazide [Hydrodiuril 25 mg Tablet] 25 mg PO DAILY 12/10/17 Metformin HCl [Metformin HCl ER] 750 mg PO DAILY 12/10/17 Pravastatin Sodium [Pravachol] 40 mg PO DAILY 12/10/17 Ramipril [Altace 10 mg Capsule] 10 mg PO Q12 12/10/17 Sitagliptin Phosphate [Januvia] 100 mg PO DAILY 12/10/17 Allergies/Adverse Reactions: iodine [Iodine] Allergy (Intermediate, Verified 12/07/17 17:51) Hives Iodinated Contrast- Oral and IV Dye [IV Dye, Iodine Containing] Allergy ( Verified 12/11/17 06:12) Physical Exam Vital Signs: Temp Pulse Resp BP Pulse Ox 97.5 F 97 16 103/56 L 100 12/11/17 04:22 12/11/17 04:22 12/11/17 04:22 12/11/17 04:22 12/11/17 04:22 Intake & Output 12/09/17 12/10/17 12/11/17 06:59 06:59 06:59 Intake Total 100 Balance 100 Weight 82.1 kg General appearance: PRESENT: other - Patient is confused but she had just received morphine and she does complain of diffuse abdominal pain. She has tachypnea with a respiratory rate of about 30. Eye exam: PRESENT: conjunctiva pink Neck exam: PRESENT: other - Supple with no tenderness and no masses Respiratory exam: PRESENT: clear to auscultation caio Cardiovascular exam: PRESENT: RRR GI/Abdominal exam: PRESENT: other - Distended with a firm feel with diffuse abdominal tenderness especially at the periumbilical region with sense of diffuse mass centrally with firmness. Neurological exam: PRESENT: alert Psychiatric exam: PRESENT: anxious Focused psych exam: PRESENT: restlessness Skin exam: PRESENT: warm Results Laboratory Results: 12/11/17 02:11 12/11/17 02:11 12/10/17 12/10/17 12/10/17 19:57 19:57 19:57 WBC RBC Hgb Hct MCV MCH MCHC RDW Plt Count Sodium Potassium Chloride Carbon Dioxide Anion Gap BUN Creatinine Est GFR ( Amer) Est GFR (Non-Af Amer) Glucose Calcium Magnesium 1.7 Total Bilirubin AST ALT Alkaline Phosphatase Ammonia < 8.7 L Total Protein Albumin Triglycerides Cholesterol LDL Cholesterol Direct VLDL Cholesterol HDL Cholesterol Amylase < 30 L Lipase 53.6 TSH 4.08 Free T4 1.55 12/11/17 12/11/17 02:11 02:11 WBC 12.4 H D RBC 4.23 Hgb 11.0 L Hct 35.1 L MCV 83 MCH 26.0 L MCHC 31.4 L RDW 14.7 H Plt Count 333 Sodium 140.1 Potassium 5.3 H D Chloride 107 Carbon Dioxide 21 L Anion Gap 12 BUN 31 H Creatinine 2.07 H Est GFR ( Amer) 28 L Est GFR (Non-Af Amer) 23 L Glucose 238 H Calcium 9.0 Magnesium Total Bilirubin 0.7 AST 41 H ALT 34 Alkaline Phosphatase 66 Ammonia Total Protein 5.8 L Albumin 2.8 L Triglycerides 129 Cholesterol 107.46 LDL Cholesterol Direct < 30 VLDL Cholesterol 26.0 HDL Cholesterol 41 Amylase Lipase TSH Free T4 12/10/17 12/10/17 12/11/17 19:57 19:57 02:11 Creatine Kinase 46 64 CK-MB (CK-2) 0.31 Troponin I < 0.012 NT-Pro-B Natriuret Pep 2840 H 12/11/17 02:11 Creatine Kinase CK-MB (CK-2) 0.91 Troponin I < 0.012 NT-Pro-B Natriuret Pep Impressions: Chest X-Ray 12/10/17 00:00 IMPRESSION: NO ACUTE RADIOGRAPHIC FINDING IN THE CHEST. Acute Abdomen Series 12/10/17 08:36 IMPRESSION: NO RADIOGRAPHIC EVIDENCE FOR ACUTE ABDOMINAL DISEASE. Lung Scan-VQ NM 12/10/17 13:03 IMPRESSION: NORMAL VENTILATION-PERFUSION LUNG SCAN. NEGATIVE FOR PULMONARY EMBOLI. Assessment & Plan - Diagnosis (1) Abdominal pain Qualifiers: Abdominal location: generalized Qualified Code(s): R10.84 - Generalized abdominal pain Is this a current diagnosis for this admission?: Yes Plan: Generalized abdominal pain and the patient with likely carcinomatosis. Uncertain of the etiology. MRI is very difficult to interpret. I will obtain a stat abdominal CT with oral contrast only. N.p.o. otherwise. Will determine course of action after the study. Will also start broad-spectrum antibiotics. Will consult nephrology for her emerging renal failure. Will consult [employer] since carcinomatosis secondary to a [employer] malignancy is a strong possibility in this case. Prognosis is very poor.
[2017-12-11] MEDS ORDERED: DEXTROSE 5%-WATER 250 ML with NOREPINEPHRINE BITARTRATE 4 MG IV PRN ×2 (08:25)
[2017-12-11 09:06] LABS: CREATINE KINASE MB 1.42 ng/mL (<4.55); TROPONIN I 0.013 ng/mL
[2017-12-11] MEDS ORDERED: NOREPINEPHRINE BITARTRATE INJ/PF 4 MG/4 ML SDV IV ONE (09:10)
--- NOTE | 2017-12-11 09:38 | RADIOLOGY REPORT (SQ) ---
EXAM DESCRIPTION: CT ABD/PELVIS ORAL ONLY COMPLETED DATE/TIME: 12/11/2017 9:15 am REASON FOR STUDY: abdominal pain COMPARISON: 12/07/2017 TECHNIQUE: CT scan of the abdomen and pelvis performed without intravenous or oral contrast. Images reviewed with lung, soft tissue, and bone windows. Reconstructed coronal and sagittal MPR images revi ewed. All images stored on PACS. All CT scanners at this facility use dose modulation, iterative reconstruction, and/or weight based d osing when appropriate to reduce radiation dose to as low as reasonably achievable (ALARA). [facility]: Dose Right [facility]: CareDose [facility]: Dose Right [facility]: Teradose 4D [facility]: Smart [employer] RADIATION DOSE: CT Rad equipment meets quality standard of care and radiation dose reduction techniq ues were employed. CTDIvol: 22.2 mGy. DLP: 1265 mGy-cm.mGy. LIMITATIONS: None. FINDINGS: LOWER CHEST: On the current study there are tiny bilateral pleural effusions with some min imal associated airspace consolidation most consistent with atelectatic changes. NON-CONTRASTED LIVER, SPLEEN, ADRENALS: Evaluation limited by lack of IV contrast. No identified sign ificant masses. PANCREAS: No masses. No peripancreatic inflammatory changes. GALLBLADDER: No identified stones by CT criteria. No inflammatory changes to suggest cholecystitis. RIGHT KIDNEY AND URETER: No suspicious masses. Assessment limited by lack of IV contrast. No signif icant calcifications. Again there is some mild dilatation of the renal pelvis. LEFT KIDNEY AND URETER: No suspicious masses. Assessment limited by lack of IV contrast. No signifi cant calcifications. Again there is some mild dilatation of the renal pelvis. AORTA AND RETROPERITONEUM: No aneurysm. No retroperitoneal masses or adenopathy. BOWEL AND PERITONEAL CAVITY: The previously described omental caking is again identified. There has been interval increase in the amount of intra-abdominal and pelvic ascitic fluid. APPENDIX: Not identified PELVIS, BLADDER, AND ABDOMINAL WALL:Pelvic ascitic fluid is identified showing interval increase in v olume since the previous study BONES: No significant findings. OTHER: No other significant finding. IMPRESSION: Interval increase in the amount of intra-abdominal and pelvic ascitic fluid. The previo usly described omental caking is again identified. Other findings as noted above. COMMENT: Quality ID # [id number]: Final reports with documentation of one or more dose reduction techniques (e.g., Automated exposure control, adjustment of the mA and/or kV according to patient size, use of iterative reconstruction technique) TECHNICAL DOCUMENTATION: JOB ID: [id number] [email or web address]- All Rights Reserved Reading location - IP/workstation name: [email or web address]
[2017-12-11 10:03] LABS: ARTERIAL BLOOD BASE EXCESS -7.3 mmol/L; ARTERIAL BLOOD H2CO3 1.06 mmol/L (1.05-1.35); ARTERIAL BLOOD HCO3 17.9 mmol/L (20-26); ARTERIAL BLOOD O2 SATURATION 94.8 % (94-98); ARTERIAL BLOOD PCO2 35.1 mmHg (35-45); ARTERIAL BLOOD PH 7.33 (7.35-7.45); ARTERIAL BLOOD PO2 77.9 mmHg (80-100)
[2017-12-11 10:06] LABS: ARTERIAL BLOOD FIO2 2L
[2017-12-11 10:20] LABS: AMORPHOUS SEDIMENT,URINE TRACE /HPF; APPEARANCE,URINE SLIGHTLY-CLOUDY; BILIRUBIN,URINE NEGATIVE (NEGATIVE); COLOR,URINE YELLOW; GLUCOSE, URINE >=500 mg/dL (NEGATIVE); KETONES,URINE NEGATIVE (NEGATIVE); LEUKOCYTE ESTERASE,URINE NEGATIVE (NEGATIVE); NITRITE,URINE NEGATIVE (NEGATIVE); PROTEIN,URINE 30 mg/dL (NEGATIVE); URINE SPECIFIC GRAVITY 1.026; UROBILINOGEN,URINE NEGATIVE mg/dL (<2.0)
[2017-12-11] MEDS ORDERED: ACETAMINOPHEN 325 MG TABLET ONE (10:21)
--- NOTE | 2017-12-11 10:54 | RADIOLOGY REPORT (SQ) ---
EXAM DESCRIPTION: CT HEAD WITHOUT COMPLETED DATE/TIME: 12/11/2017 10:45 am REASON FOR STUDY: r/o stroke COMPARISON: MRI dated 04/09/2012. TECHNIQUE: Axial images acquired through the brain without intravenous contrast. Images reviewed wi th bone, brain and subdural windows. Additional sagittal and coronal reconstructions were generated. Images stored on PACS. All CT scanners at this facility use dose modulation, iterative reconstruction, and/or weight based d osing when appropriate to reduce radiation dose to as low as reasonably achievable (ALARA). [facility]: Dose Right [facility]: CareDose [facility]: Dose Right [facility]: Teradose 4D [facility]: [employer] RADIATION DOSE: CT Rad equipment meets quality standard of care and radiation dose reduction techniq ues were employed. CTDIvol: 48.5 mGy. DLP: 854 mGy-cm. mGy. LIMITATIONS: None. FINDINGS: VENTRICLES: Normal size and contour. CEREBRUM: No masses. No hemorrhage. No midline shift. No evidence for acute infarction. Normal gra y/white matter differentiation. No areas of low density in the white matter. CEREBELLUM: No masses. No hemorrhage. No alteration of density. No evidence for acute infarction. EXTRAAXIAL SPACES: No fluid collections. No masses. ORBITS AND GLOBE: No intra- or extraconal masses. Normal contour of globe without masses. CALVARIUM: No fracture. PARANASAL SINUSES: No fluid or mucosal thickening. SOFT TISSUES: No mass or hematoma. OTHER: No other significant finding. IMPRESSION: NORMAL BRAIN CT WITHOUT CONTRAST. EVIDENCE OF ACUTE STROKE: NO. COMMENT: Quality ID # [id number]: Final reports with documentation of one or more dose reduction techniques (e.g., Automated exposure control, adjustment of the mA and/or kV according to patient size, use of iterative reconstruction technique) TECHNICAL DOCUMENTATION: JOB ID: [id number] [employer]- All Rights Reserved Reading location - IP/workstation name: [facility]-RR2
--- NOTE | 2017-12-11 10:56 | RADIOLOGY REPORT (SQ) ---
EXAM DESCRIPTION: CHEST SINGLE VIEW COMPLETED DATE/TIME: 12/11/2017 10:49 am REASON FOR STUDY: shortness of breath COMPARISON: 12/10/2017. EXAM PARAMETERS: NUMBER OF VIEWS: One view. TECHNIQUE: Single frontal radiographic view of the chest acquired. RADIATION DOSE: NA LIMITATIONS: None. FINDINGS: LUNGS AND PLEURA: Low lung volumes. Possible atelectasis or developing infiltrate in the retrocardiac left lower lobe. Right lung appears clear. MEDIASTINUM AND HILAR STRUCTURES: No masses. Contour normal. HEART AND VASCULAR STRUCTURES: Heart normal in size. Normal vasculature. BONES: No acute findings. HARDWARE: None in the chest. OTHER: No other significant finding. IMPRESSION: LOW LUNG VOLUMES. POSSIBLE ATELECTASIS OR DEVELOPING INFILTRATE IN THE LEFT LUNG BASE. TECHNICAL DOCUMENTATION: JOB ID: [id number] [email or web address])- All Rights Reserved Reading location - IP/workstation name: [email or web address]
[2017-12-11] MEDS ORDERED: ACETAMINOPHEN 325 MG TABLET PO PRN ×2 (11:11→12:30)
[2017-12-11 11:41] LABS: ALANINE AMINOTRANSFERASE 33 U/L (9-52); ALKALINE PHOSPHATASE 71 U/L (38-126); ANION GAP 17 (5-19); ASPARTATE AMINO TRANSFERASE 47 U/L (14-36); BILIRUBIN,DIRECT 0.8 mg/dL (0.0-0.4); BILIRUBIN,TOTAL 0.9 mg/dL (0.2-1.3); BLOOD UREA NITROGEN 33 mg/dL (7-20); CALCIUM 8.9 mg/dL (8.4-10.2); CARBON DIOXIDE 18 mmol/L (22-30); CHLORIDE 108 mmol/L (98-107); GLUCOSE 194 mg/dL (75-110); PHOSPHORUS 5.5 mg/dL (2.5-4.5); POTASSIUM 5.5 mmol/L (3.6-5.0); SODIUM 142.5 mmol/L (137-145); TOTAL PROTEIN 6.1 g/dL (6.3-8.2)
--- NOTE | 2017-12-11 11:41 | EKG REPORT ---
SEVERITY:- ABNORMAL ECG - SINUS TACHYCARDIA BORDERLINE LEFT AXIS DEVIATION CONSIDER ANTERIOR INFARCT NONSPECIFIC T ABNORMALITIES, INFERIOR LEADS : Confirmed by: Blanche Morejon MD 11-Dec-2017 11:40:15
[2017-12-11 11:47] LABS: ALBUMIN 3.2 g/dL (3.5-5.0); TOTAL PROTEIN 6.6 g/dL (6.3-8.2)
[2017-12-11] MEDS ORDERED: IBUPROFEN 600 MG TABLET PO PRN (12:05)
--- NOTE | 2017-12-11 12:31 | PDOC CONSULTATION ---
Consultation Consult Date: 12/11/17 Consult reason:: acute renal failure History of Present Illness Admission Date/PCP: 12/10/17 18:54 TURNER DARDEN MD History of Present Illness: MARYJANE LINDER is a 77 year old female with history of type 2 diabetes mellitus , history of malignant neoplasm of the left breast that was treated successfully with chemotherapy, surgery and radiation therapy. She came to the emergency room for evaluation of abdominal pain on 12/07/2017, CAT scan of the abdomen and pelvis without contrast was done it showed omental caking with small amount of ascites the impression was that the finding was suspicious for peritoneal carcinomatosis, it was a limited study because of no contrast. She was referred from the emergency room to cancer center in [place], according to the daughter she never made it down there. She came to the emergency room on 12/10/17 for evaluation of continued abdominal pain. According to her daughter she has been having this pain for 1 month. Over the past few days she has been hardly eating or drinking. She does have occasional nausea. In the emergency room she found to have a low oxygen saturation in the 80s on pulse oximetry. An arterial blood gas was drawn that showed an FiO2 of 88%, pH 7.34 PO2 54.5 bicarbonate 17.2, PCO2 32. Chest x-ray was negative for acute infiltrate or fluid, a VQ scan was negative for a pulmonary embolism. Their was suspicion by her primary of peritonitis due to the diffuse abdominal pain. An ultrasound of the abdomen and pelvis was initially done on 12/07/2017 for evaluation of abdominal pain, the ultrasound showed moderate free fluid in the pelvis which is nonspecific the ovaries are not visualized, the endometrial stripe was 4 mm. On admission she was vigorously hydrated, consulted by surgery who did a CT of the abdomen and pelvis and she was started empirically on IV antibiotic, a broad -spectrum antibiotic, Zosyn and Ertypenem. At the time of seeing her she was SOB and appeared to be slight bit lethargic, requiring verbal stimuli to have her answer some questions. Blood pressures are remaining in the 80s to 90s systolic. She being transferred down to the ICU so that she can be started on a levophed drip. At the time she denied any chest pain, fevers, chills, n/v/d/c. She said that her urine out put was fine but according to the daughter she thinks it is decreased. Past Medical History Cardiac Medical History: Reports: Hyperlipidemia Pulmonary Medical History: Reports: None Endocrine Medical History: Reports: Diabetes Mellitus Type 2 Psychiatric Medical History: Denies: Depression Past Surgical History Past Surgical History: Reports: Section Social History Lives with: Family Smoking Status: Never Smoker Frequency of Alcohol Use: None Hx Recreational Drug Use: No Drugs: None Hx Prescription Drug Abuse: No - Advance Directive Resuscitation Status: Full Code Family History Family History: Chronic Kidney Disease Parental Family History Reviewed: No Children Family History Reviewed: No Sibling(s) Family History Reviewed.: No Medication/Allergy Home Medications: Amlodipine Besylate [Norvasc 2.5 mg Tablet] 2.5 mg PO DAILY 12/10/17 Aspirin [Ecotrin 81 mg EC Tablet] 81 mg PO DAILY 12/10/17 Atenolol [Tenormin 50 mg Tablet] 50 mg PO Q12 12/10/17 Clotrimazole/Betamethasone Dip [Clotrimazole-Betamethasone Crm] 1 applic TOP BID 12/10/17 Empagliflozin [Jardiance] 10 mg PO DAILY 12/10/17 Exemestane [Aromasin] 25 mg PO DAILY 12/10/17 Famotidine [Pepcid 40 mg Tablet] 40 mg PO DAILY 12/10/17 Fexofenadine HCl [Alba Allergy] 180 mg PO DAILYP PRN 12/10/17 Hydrochlorothiazide [Hydrodiuril 25 mg Tablet] 25 mg PO DAILY 12/10/17 Metformin HCl [Metformin HCl ER] 750 mg PO DAILY 12/10/17 Pravastatin Sodium [Pravachol] 40 mg PO DAILY 12/10/17 Ramipril [Altace 10 mg Capsule] 10 mg PO Q12 12/10/17 Sitagliptin Phosphate [Januvia] 100 mg PO DAILY 12/10/17 Allergies/Adverse Reactions: iodine [Iodine] Allergy (Intermediate, Verified 12/07/17 17:51) Hives Iodinated Contrast- Oral and IV Dye [IV Dye, Iodine Containing] Allergy ( Verified 12/11/17 06:12) Review of Systems Constitutional: PRESENT: anorexia, weakness. ABSENT: chills, fever(s), headache (s) Eyes: ABSENT: visual disturbances Ears: ABSENT: hearing changes Nose, Mouth, and Throat: ABSENT: headache(s) Cardiovascular: PRESENT: dyspnea on exertion. ABSENT: chest pain, edema, orthropnea, palpitations Respiratory: PRESENT: dyspnea. ABSENT: cough, sputum Gastrointestinal: PRESENT: abdominal pain, nausea. ABSENT: constipation, diarrhea, vomiting Genitourinary: PRESENT: other - -decreased urination. ABSENT: difficulty urinating, dysuria, hematuria Musculoskeletal: ABSENT: joint swelling, muscle weakness Neurological: ABSENT: confusion, dizziness, focal weakness, weakness Physical Exam Vital Signs: Temp Pulse Resp BP Pulse Ox 99.3 F 102 H 26 H 88/50 L 97 12/11/17 09:29 12/11/17 09:29 12/11/17 09:29 12/11/17 09:29 12/11/17 09:29 Intake & Output 12/10/17 12/11/17 12/12/17 06:59 06:59 06:59 Intake Total 1500 Balance 1500 Weight 82.1 kg General appearance: PRESENT: mild distress, well-developed, well-nourished Eye exam: PRESENT: EOMI. ABSENT: scleral icterus Mouth exam: PRESENT: moist, neck supple Neck exam: PRESENT: full ROM. ABSENT: JVD, tracheal deviation Respiratory exam: PRESENT: clear to auscultation caio, crackles - -bases of the lungs. ABSENT: rales, rhonchi, wheezes Cardiovascular exam: PRESENT: RRR, +S1, +S2 GI/Abdominal exam: PRESENT: ascites, distended, guarding, tenderness Extremities exam: ABSENT: pedal edema, tenderness, +1 edema, +2 edema Musculoskeletal exam: PRESENT: normal inspection. ABSENT: tenderness Neurological exam: PRESENT: awake, oriented to person, oriented to place Psychiatric exam: PRESENT: appropriate affect, normal mood Skin exam: PRESENT: dry, intact, warm Results Laboratory Results: 12/11/17 02:11 12/11/17 02:11 12/10/17 12/10/17 12/10/17 19:57 19:57 19:57 WBC RBC Hgb Hct MCV MCH MCHC RDW Plt Count Carbonic Acid HCO3/H2CO3 Ratio ABG pH ABG pCO2 ABG pO2 ABG HCO3 ABG O2 Saturation ABG Base Excess FiO2 Sodium Potassium Chloride Carbon Dioxide Anion Gap BUN Creatinine Est GFR ( Amer) Est GFR (Non-Af Amer) Glucose Calcium Magnesium 1.7 Total Bilirubin AST ALT Alkaline Phosphatase Ammonia < 8.7 L Total Protein Albumin Triglycerides Cholesterol LDL Cholesterol Direct VLDL Cholesterol HDL Cholesterol Amylase < 30 L Lipase 53.6 TSH 4.08 Free T4 1.55 12/11/17 12/11/17 12/11/17 02:11 02:11 09:30 WBC 12.4 H D RBC 4.23 Hgb 11.0 L Hct 35.1 L MCV 83 MCH 26.0 L MCHC 31.4 L RDW 14.7 H Plt Count 333 Carbonic Acid 1.06 HCO3/H2CO3 Ratio 16:1 ABG pH 7.33 L ABG pCO2 35.1 ABG pO2 77.9 L ABG HCO3 17.9 L ABG O2 Saturation 94.8 ABG Base Excess -7.3 FiO2 2L Sodium 140.1 Potassium 5.3 H D Chloride 107 Carbon Dioxide 21 L Anion Gap 12 BUN 31 H Creatinine 2.07 H Est GFR ( Amer) 28 L Est GFR (Non-Af Amer) 23 L Glucose 238 H Calcium 9.0 Magnesium Total Bilirubin 0.7 AST 41 H ALT 34 Alkaline Phosphatase 66 Ammonia Total Protein 5.8 L Albumin 2.8 L Triglycerides 129 Cholesterol 107.46 LDL Cholesterol Direct < 30 VLDL Cholesterol 26.0 HDL Cholesterol 41 Amylase Lipase TSH Free T4 12/10/17 12/10/17 12/11/17 19:57 19:57 02:11 Creatine Kinase 46 64 CK-MB (CK-2) 0.31 Troponin I < 0.012 NT-Pro-B Natriuret Pep 2840 H 12/11/17 12/11/17 12/11/17 02:11 07:50 07:50 Creatine Kinase 73 CK-MB (CK-2) 0.91 1.42 Troponin I < 0.012 0.013 NT-Pro-B Natriuret Pep Impressions: Abdomen MRI 12/10/17 00:00 IMPRESSION: LIMITED STUDY. SEVERAL ROUND MASSES IN THE LIVER CONSISTENT WITH METASTASES. ASCITES. THE STUDY COULD NOT BE COMPLETED DUE TO PATIENT CLAUSTROPHOBIA. THE STUDY WAS PERFORMED A STAT MRI AFTER HOURS AND SEDATION WAS UNAVAILABLE. Chest X-Ray 12/10/17 00:00 IMPRESSION: NO ACUTE RADIOGRAPHIC FINDING IN THE CHEST. Acute Abdomen Series 12/10/17 08:36 IMPRESSION: NO RADIOGRAPHIC EVIDENCE FOR ACUTE ABDOMINAL DISEASE. Lung Scan-VQ NM 12/10/17 13:03 IMPRESSION: NORMAL VENTILATION-PERFUSION LUNG SCAN. NEGATIVE FOR PULMONARY EMBOLI. Abdomen/Pelvis CT 12/11/17 00:00 IMPRESSION: Interval increase in the amount of intra-abdominal and pelvic ascitic fluid. The previously described omental caking is again identified. Other findings as noted above. Assessment & Plan - Diagnosis (1) Abdominal pain Qualifiers: Abdominal location: generalized Qualified Code(s): R10.84 - Generalized abdominal pain Is this a current diagnosis for this admission?: Yes Plan: currently being worked up by surgery (2) Acute kidney injury Is this a current diagnosis for this admission?: Yes Plan: Patient is not measuring urine so CRAIG can not be determined if it is nonoliguric or not. CRAIG is from [facility]N from septic shock. Other factors affecting the kidneys are hypotension and volume depletion from lack of fluid intake. She received significant amount of fluid since admission yesterday. Continue on NS at a low rate of 75mL an hour. All medication needs to be renal dosed to a GFR of less than 25. No current indication for LOCK SETTER (3) Hypoxemia Plan: recommend getting an incentive spirometer to help with improving atelectasis that is starting to worsen in her lungs. (4) Metabolic acidosis Is this a current diagnosis for this admission?: Yes Plan: Currently not needing medication, will reassess tomorrow. (5) Peritoneal carcinomatosis Plan: Managed by surgery (6) Peritonitis Is this a current diagnosis for this admission?: Yes Plan: currently being managed by surgery and primary. Will look to make sure all antibiotics are properly dosed to to a GFR of 25 (7) Septic shock Plan: looks to be progressing to septic shock, according to the nurse in charge of her care, she is being transferred to ICU and started on levophed. Will continue current antibiotics properly dosed for a GFR of 25. Awaiting cultures.
[2017-12-11 12:42] LABS: INTERNATIONAL RATION (INR) 1.91; PROTHROMBIN TIME 22.8 SEC (11.4-15.4)
[2017-12-11 12:43] LABS: PARTIAL THROMBOPLASTIN TIME 37.4 SEC (23.5-35.8)
--- NOTE | 2017-12-11 13:00 | PDOC PROGRESS REPORT ---
Subjective Progress Note for:: 12/11/17 Reason For Visit: PERITONITIS, INFECTION, CARCINOMATOSIS, METABOLIC Physical Exam Vital Signs: Temp Pulse Resp BP Pulse Ox 99.3 F 102 H 31 H 100/70 100 12/11/17 09:29 12/11/17 09:29 12/11/17 12:00 12/11/17 11:53 12/11/17 11:53 Intake & Output 12/10/17 12/11/17 12/12/17 06:59 06:59 06:59 Intake Total 1500 Balance 1500 Weight 82.1 kg Results Laboratory Results: 12/11/17 02:11 12/11/17 11:11 12/10/17 12/10/17 12/10/17 19:57 19:57 19:57 WBC RBC Hgb Hct MCV MCH MCHC RDW Plt Count Carbonic Acid HCO3/H2CO3 Ratio ABG pH ABG pCO2 ABG pO2 ABG HCO3 ABG O2 Saturation ABG Base Excess FiO2 Sodium Potassium Chloride Carbon Dioxide Anion Gap BUN Creatinine Est GFR ( Amer) Est GFR (Non-Af Amer) Glucose Calcium Phosphorus Magnesium 1.7 Total Bilirubin AST ALT Alkaline Phosphatase Ammonia < 8.7 L Total Protein Albumin Triglycerides Cholesterol LDL Cholesterol Direct VLDL Cholesterol HDL Cholesterol Amylase < 30 L Lipase 53.6 TSH 4.08 Free T4 1.55 Urine Color Urine Appearance Urine pH Ur Specific [place] Urine Protein Urine Glucose (UA) Urine Ketones Urine Blood Urine Nitrite Ur Leukocyte Esterase Urine WBC (Auto) Urine RBC (Auto) 12/11/17 12/11/17 12/11/17 02:11 02:11 09:30 WBC 12.4 H D RBC 4.23 Hgb 11.0 L Hct 35.1 L MCV 83 MCH 26.0 L MCHC 31.4 L RDW 14.7 H Plt Count 333 Carbonic Acid 1.06 HCO3/H2CO3 Ratio 16:1 ABG pH 7.33 L ABG pCO2 35.1 ABG pO2 77.9 L ABG HCO3 17.9 L ABG O2 Saturation 94.8 ABG Base Excess -7.3 FiO2 2L Sodium 140.1 Potassium 5.3 H D Chloride 107 Carbon Dioxide 21 L Anion Gap 12 BUN 31 H Creatinine 2.07 H Est GFR ( Amer) 28 L Est GFR (Non-Af Amer) 23 L Glucose 238 H Calcium 9.0 Phosphorus Magnesium Total Bilirubin 0.7 AST 41 H ALT 34 Alkaline Phosphatase 66 Ammonia Total Protein 5.8 L Albumin 2.8 L Triglycerides 129 Cholesterol 107.46 LDL Cholesterol Direct < 30 VLDL Cholesterol 26.0 HDL Cholesterol 41 Amylase Lipase TSH Free T4 Urine Color Urine Appearance Urine pH Ur Specific [place] Urine Protein Urine Glucose (UA) Urine Ketones Urine Blood Urine Nitrite Ur Leukocyte Esterase Urine WBC (Auto) Urine RBC (Auto) 12/11/17 12/11/17 12/11/17 10:00 11:11 11:11 WBC RBC Hgb Hct MCV MCH MCHC RDW Plt Count Carbonic Acid HCO3/H2CO3 Ratio ABG pH ABG pCO2 ABG pO2 ABG HCO3 ABG O2 Saturation ABG Base Excess FiO2 Sodium 142.5 Potassium 5.5 H Chloride 108 H Carbon Dioxide 18 L Anion Gap 17 BUN 33 H Creatinine 2.00 H Est GFR ( Amer) 29 L Est GFR (Non-Af Amer) 24 L Glucose 194 H Calcium 8.9 Phosphorus 5.5 H Magnesium 1.6 Total Bilirubin 0.9 AST 47 H ALT 33 Alkaline Phosphatase 71 Ammonia Total Protein 6.1 L 6.6 Albumin 3.0 L 3.2 L Triglycerides Cholesterol LDL Cholesterol Direct VLDL Cholesterol HDL Cholesterol Amylase Lipase TSH Free T4 Urine Color YELLOW Urine Appearance SLIGHTLY-CLOUDY Urine pH 5.0 Ur Specific [place] 1.026 Urine Protein 30 H Urine Glucose (UA) >=500 H Urine Ketones NEGATIVE Urine Blood NEGATIVE Urine Nitrite NEGATIVE Ur Leukocyte Esterase NEGATIVE Urine WBC (Auto) 1 Urine RBC (Auto) 1 12/10/17 12/10/17 12/11/17 19:57 19:57 02:11 Creatine Kinase 46 64 CK-MB (CK-2) 0.31 Troponin I < 0.012 NT-Pro-B Natriuret Pep 2840 H 12/11/17 12/11/17 12/11/17 02:11 07:50 07:50 Creatine Kinase 73 CK-MB (CK-2) 0.91 1.42 Troponin I < 0.012 0.013 NT-Pro-B Natriuret Pep Impressions: Abdomen MRI 12/10/17 00:00 IMPRESSION: LIMITED STUDY. SEVERAL ROUND MASSES IN THE LIVER CONSISTENT WITH METASTASES. ASCITES. THE STUDY COULD NOT BE COMPLETED DUE TO PATIENT CLAUSTROPHOBIA. THE STUDY WAS PERFORMED A STAT MRI AFTER HOURS AND SEDATION WAS UNAVAILABLE. Acute Abdomen Series 12/10/17 08:36 IMPRESSION: NO RADIOGRAPHIC EVIDENCE FOR ACUTE ABDOMINAL DISEASE. Lung Scan-VQ NM 12/10/17 13:03 IMPRESSION: NORMAL VENTILATION-PERFUSION LUNG SCAN. NEGATIVE FOR PULMONARY EMBOLI. Abdomen/Pelvis CT 12/11/17 00:00 IMPRESSION: Interval increase in the amount of intra-abdominal and pelvic ascitic fluid. The previously described omental caking is again identified. Other findings as noted above. Chest X-Ray 12/11/17 00:00 IMPRESSION: LOW LUNG VOLUMES. POSSIBLE ATELECTASIS OR DEVELOPING INFILTRATE IN THE LEFT LUNG BASE. Head CT 12/11/17 00:00 IMPRESSION: NORMAL BRAIN CT WITHOUT CONTRAST. EVIDENCE OF ACUTE STROKE: NO. Assessment & Plan - Diagnosis (1) Abdominal pain Qualifiers: Abdominal location: generalized Qualified Code(s): R10.84 - Generalized abdominal pain Is this a current diagnosis for this admission?: Yes (2) Peritoneal carcinomatosis Is this a current diagnosis for this admission?: Yes Plan: I have reviewed her repeat CT scan with oral contrast with radiology as well as her prior radiologic studies. I have discussed her case with gynecology as well. Gynecology does not feel that they have anything to offer this patient here. They had already seen her as an outpatient this week and had made a referral to tertiary care center. 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 Her liver has multiple suspicious appearing lesions consistent with widespread metastasis. Her CT scan does not demonstrate evidence of bowel perforation nor bowel obstruction nor overt evidence of intestinal compromise. Nevertheless she continues to have abdominal pain and diffuse abdominal tenderness. I have had a long discussion with the family concerning options for her. The most reasonable option at this point would be comfort measures only, however if the family wants to be more aggressive than I recommend transfer to a tertiary care facility. I do not think I could help her with an operation here. Family to discuss my recommendation and decide. I have discussed my impression with Dr. Rocha as well.
[2017-12-11 13:32] LABS: D-DIMER > 20.00 ug/mL (0.00-0.50)
[2017-12-11] MEDS ORDERED: LIDOCAINE 1% INJ-PF (10 MG/ML) 30 ML SDV ONE (14:22)
[2017-12-11] MEDS ORDERED: VASOPRESSIN INJ 20 UNIT/1 ML VIAL ONE (14:26)
[2017-12-11 14:44] LABS: CREATINE KINASE MB 1.38 ng/mL (<4.55)
[2017-12-11 14:46] LABS: TROPONIN I < 0.012 ng/mL
--- NOTE | 2017-12-11 15:38 | RADIOLOGY REPORT (SQ) ---
EXAM DESCRIPTION: U/S ABD PARACENTESIS COMPLETED DATE/TIME: 12/11/2017 3:14 pm REASON FOR STUDY: Ascites COMPARISON: None. LIMITATIONS: None. PROCEDURE: Procedure, risks, benefit, and alternative explained to patient who then gave written con sent. The left lower abdominal wall marked using ultrasound guidance. A time-out was called for cor rect marking verification. Abdomen prepped and draped using sterile technique. Local anesthesia achi eved using 10 ml of 1% lidocaine injection. A 6fr Nxty-W-Royqwzpo set was introduced into the perito lisa cavity. Fluid was drained. The catheter was removed and entry site was covered with sterile ba ndage. No immediate complications noted. Images acquired during the procedure were stored on PACS. FINDINGS: ENTRY SITE: Left lower quadrant. FLUID VOLUME: 1150 mL. FLUID ANALYSIS: Straw-colored. OTHER: Fluid sent to the lab for testing. IMPRESSION: SUCCESSFUL ULTRASOUND GUIDED PARACENTESIS. COMMENT: Patient medication list reviewed:Yes- Quality ID# [id number]:Eligible professional attests to docu menting in the medical record they obtained, updated, or reviewed the patient's current medications. TECHNICAL DOCUMENTATION: JOB ID: [id number] [employer]- All Rights Reserved Reading location - IP/workstation name: [email or web address]
[2017-12-11 16:12] LABS: FLUID APPEARANCE CLOUDY; FLUID COLOR YELLOW; FLUID VISCOSITY LIQUID
[2017-12-11 16:18] LABS: FLUID SOURCE ASCITES; FLUID TYPE PERITONEAL
--- NOTE | 2017-12-11 16:52 | PDOC PROGRESS REPORT ---
Subjective Progress Note for:: 12/11/17 Subjective:: Patient's condition is very poor, she was seen by the surgeon, she has metastatic disease, peritoneal carcinomatosis, she underwent ultrasound guided paracentesis today 1150 ml of ascites fluid was drained for diagnostic studies including cytology, albumin and total protein content. Prognosis is extremely poor after prolonged discussion with family and children of this patient and family is agreeable and the consensus is that patient should be comfort measures.. She was transferred to ICU earlier this morning because she was showing signs of septic shock with low blood pressure, she was started on norepinephrine intravenously she was already vigorously hydrated since yesterday when she was admitted with normal saline at 2 50 cc/h. Reason For Visit: PERITONITIS, INFECTION, CARCINOMATOSIS, METABOLIC Physical Exam Vital Signs: Temp Pulse Resp BP Pulse Ox 99.3 F 102 H 28 H 100/70 99 12/11/17 09:29 12/11/17 09:29 12/11/17 14:48 12/11/17 11:53 12/11/17 14:48 Intake & Output 12/10/17 12/11/17 12/12/17 06:59 06:59 06:59 Intake Total 1500 Balance 1500 Weight 82.1 kg Results Laboratory Results: 12/11/17 02:11 12/11/17 11:11 12/10/17 12/10/17 12/10/17 19:57 19:57 19:57 WBC RBC Hgb Hct MCV MCH MCHC RDW Plt Count Carbonic Acid HCO3/H2CO3 Ratio ABG pH ABG pCO2 ABG pO2 ABG HCO3 ABG O2 Saturation ABG Base Excess FiO2 Sodium Potassium Chloride Carbon Dioxide Anion Gap BUN Creatinine Est GFR ( Amer) Est GFR (Non-Af Amer) Glucose Calcium Phosphorus Magnesium 1.7 Total Bilirubin AST ALT Alkaline Phosphatase Ammonia < 8.7 L Total Protein Albumin Triglycerides Cholesterol LDL Cholesterol Direct VLDL Cholesterol HDL Cholesterol Amylase < 30 L Lipase 53.6 TSH 4.08 Free T4 1.55 Urine Color Urine Appearance Urine pH Ur Specific [place] Urine Protein Urine Glucose (UA) Urine Ketones Urine Blood Urine Nitrite Ur Leukocyte Esterase Urine WBC (Auto) Urine RBC (Auto) Fluid Type Fluid Source Fluid Color Fluid Appearance Fluid Viscosity Fluid WBC Fluid RBC 12/11/17 12/11/17 12/11/17 02:11 02:11 09:30 WBC 12.4 H D RBC 4.23 Hgb 11.0 L Hct 35.1 L MCV 83 MCH 26.0 L MCHC 31.4 L RDW 14.7 H Plt Count 333 Carbonic Acid 1.06 HCO3/H2CO3 Ratio 16:1 ABG pH 7.33 L ABG pCO2 35.1 ABG pO2 77.9 L ABG HCO3 17.9 L ABG O2 Saturation 94.8 ABG Base Excess -7.3 FiO2 2L Sodium 140.1 Potassium 5.3 H D Chloride 107 Carbon Dioxide 21 L Anion Gap 12 BUN 31 H Creatinine 2.07 H Est GFR ( Amer) 28 L Est GFR (Non-Af Amer) 23 L Glucose 238 H Calcium 9.0 Phosphorus Magnesium Total Bilirubin 0.7 AST 41 H ALT 34 Alkaline Phosphatase 66 Ammonia Total Protein 5.8 L Albumin 2.8 L Triglycerides 129 Cholesterol 107.46 LDL Cholesterol Direct < 30 VLDL Cholesterol 26.0 HDL Cholesterol 41 Amylase Lipase TSH Free T4 Urine Color Urine Appearance Urine pH Ur Specific [place] Urine Protein Urine Glucose (UA) Urine Ketones Urine Blood Urine Nitrite Ur Leukocyte Esterase Urine WBC (Auto) Urine RBC (Auto) Fluid Type Fluid Source Fluid Color Fluid Appearance Fluid Viscosity Fluid WBC Fluid RBC 12/11/17 12/11/17 12/11/17 10:00 11:11 11:11 WBC RBC Hgb Hct MCV MCH MCHC RDW Plt Count Carbonic Acid HCO3/H2CO3 Ratio ABG pH ABG pCO2 ABG pO2 ABG HCO3 ABG O2 Saturation ABG Base Excess FiO2 Sodium 142.5 Potassium 5.5 H Chloride 108 H Carbon Dioxide 18 L Anion Gap 17 BUN 33 H Creatinine 2.00 H Est GFR ( Amer) 29 L Est GFR (Non-Af Amer) 24 L Glucose 194 H Calcium 8.9 Phosphorus 5.5 H Magnesium 1.6 Total Bilirubin 0.9 AST 47 H ALT 33 Alkaline Phosphatase 71 Ammonia Total Protein 6.1 L 6.6 Albumin 3.0 L 3.2 L Triglycerides Cholesterol LDL Cholesterol Direct VLDL Cholesterol HDL Cholesterol Amylase Lipase TSH Free T4 Urine Color YELLOW Urine Appearance SLIGHTLY-CLOUDY Urine pH 5.0 Ur Specific [place] 1.026 Urine Protein 30 H Urine Glucose (UA) >=500 H Urine Ketones NEGATIVE Urine Blood NEGATIVE Urine Nitrite NEGATIVE Ur Leukocyte Esterase NEGATIVE Urine WBC (Auto) 1 Urine RBC (Auto) 1 Fluid Type Fluid Source Fluid Color Fluid Appearance Fluid Viscosity Fluid WBC Fluid RBC 12/11/17 12/11/17 14:30 14:30 WBC RBC Hgb Hct MCV MCH MCHC RDW Plt Count Carbonic Acid HCO3/H2CO3 Ratio ABG pH ABG pCO2 ABG pO2 ABG HCO3 ABG O2 Saturation ABG Base Excess FiO2 Sodium Potassium Chloride Carbon Dioxide Anion Gap BUN Creatinine Est GFR ( Amer) Est GFR (Non-Af Amer) Glucose Calcium Phosphorus Magnesium Total Bilirubin AST ALT Alkaline Phosphatase Ammonia Total Protein Cancelled Albumin Triglycerides Cholesterol LDL Cholesterol Direct VLDL Cholesterol HDL Cholesterol Amylase Lipase TSH Free T4 Urine Color Urine Appearance Urine pH Ur Specific [place] Urine Protein Urine Glucose (UA) Urine Ketones Urine Blood Urine Nitrite Ur Leukocyte Esterase Urine WBC (Auto) Urine RBC (Auto) Fluid Type PERITONEAL Fluid Source ASCITES Fluid Color YELLOW Fluid Appearance CLOUDY Fluid Viscosity LIQUID Fluid WBC 706 Fluid RBC 627 12/10/17 12/10/17 12/11/17 19:57 19:57 02:11 Creatine Kinase 46 64 CK-MB (CK-2) 0.31 Troponin I < 0.012 NT-Pro-B Natriuret Pep 2840 H 12/11/17 12/11/17 12/11/17 02:11 07:50 07:50 Creatine Kinase 73 CK-MB (CK-2) 0.91 1.42 Troponin I < 0.012 0.013 NT-Pro-B Natriuret Pep 12/11/17 12/11/17 13:57 13:57 Creatine Kinase 81 CK-MB (CK-2) 1.38 Troponin I < 0.012 NT-Pro-B Natriuret Pep Impressions: Abdomen MRI 12/10/17 00:00 IMPRESSION: LIMITED STUDY. SEVERAL ROUND MASSES IN THE LIVER CONSISTENT WITH METASTASES. ASCITES. THE STUDY COULD NOT BE COMPLETED DUE TO PATIENT CLAUSTROPHOBIA. THE STUDY WAS PERFORMED A STAT MRI AFTER HOURS AND SEDATION WAS UNAVAILABLE. Acute Abdomen Series 12/10/17 08:36 IMPRESSION: NO RADIOGRAPHIC EVIDENCE FOR ACUTE ABDOMINAL DISEASE. Lung Scan-VQ NM 12/10/17 13:03 IMPRESSION: NORMAL VENTILATION-PERFUSION LUNG SCAN. NEGATIVE FOR PULMONARY EMBOLI. Abdomen/Pelvis CT 12/11/17 00:00 IMPRESSION: Interval increase in the amount of intra-abdominal and pelvic ascitic fluid. The previously described omental caking is again identified. Other findings as noted above. Chest X-Ray 12/11/17 00:00 IMPRESSION: LOW LUNG VOLUMES. POSSIBLE ATELECTASIS OR DEVELOPING INFILTRATE IN THE LEFT LUNG BASE. Head CT 12/11/17 00:00 IMPRESSION: NORMAL BRAIN CT WITHOUT CONTRAST. EVIDENCE OF ACUTE STROKE: NO. Paracentesis Ultrasound 12/11/17 11:32 IMPRESSION: SUCCESSFUL ULTRASOUND GUIDED PARACENTESIS. Assessment & Plan - Diagnosis (1) Peritonitis Is this a current diagnosis for this admission?: Yes (2) Metabolic acidosis Is this a current diagnosis for this admission?: Yes (3) Hypoxemia Is this a current diagnosis for this admission?: Yes (4) Acute kidney injury Is this a current diagnosis for this admission?: Yes (5) Sepsis Qualifiers: Sepsis type: sepsis due to unspecified organism Qualified Code(s): A41.9 - Sepsis, unspecified organism Is this a current diagnosis for this admission?: Yes (6) Peritoneal carcinomatosis Is this a current diagnosis for this admission?: Yes
[2017-12-11] MEDS: MORPHINE SULFATE 10 MG/ML INJ IV PRN ×2 (17:02→20:14)
[2017-12-11] MEDS ORDERED: PIPERACILLIN SODIUM/TAZOBACTAM 2.25 GM in NORMAL SALINE 100 ML IV SCH (18:00)
[2017-12-11] MEDS ORDERED: PIPERACILLIN SODIUM/TAZOBACTAM 2.25 GM in NORMAL SALINE 50 ML IV SCH (18:00)
[2017-12-12] MEDS: MORPHINE SULFATE 10 MG/ML INJ IV PRN ×5 (00:24→16:43)
[2017-12-12] MEDS: HEPARIN SOD (PORCINE) 5,000 UNIT/ML 1 ML SYRINGE SUBCUT SCH ×3 (04:58→21:12)
[2017-12-13] MEDS: MORPHINE SULFATE 10 MG/ML INJ IV PRN ×5 (00:36→23:53)
[2017-12-13] MEDS: HEPARIN SOD (PORCINE) 5,000 UNIT/ML 1 ML SYRINGE SUBCUT SCH ×3 (05:06→21:02)
--- NOTE | 2017-12-13 13:09 | PDOC PROGRESS REPORT ---
Subjective Progress Note for:: 12/13/17 Subjective:: Patient is stuporous,, she has carcinomatosis, the serum- ascites albumin gradient is 0.7 suggesting no portal hypertension, the total protein is 4.7 all this is consistent with exudative ascites fluid due to carcinomatosis. Presently comfort measures Reason For Visit: PERITONITIS, INFECTION, CARCINOMATOSIS, METABOLIC Physical Exam Vital Signs: Temp Pulse Resp BP Pulse Ox 98.8 F 95 11 L 78/55 L 90 L 12/12/17 17:42 12/12/17 17:42 12/12/17 17:42 12/12/17 17:42 12/12/17 17:42 Results Laboratory Results: 12/11/17 02:11 12/11/17 11:11 12/11/17 12/11/17 14:30 14:30 Fluid Total Protein 4.9 Fluid Albumin 2.5 12/10/17 12/10/17 12/11/17 19:57 19:57 02:11 Creatine Kinase 46 64 CK-MB (CK-2) 0.31 Troponin I < 0.012 NT-Pro-B Natriuret Pep 2840 H 12/11/17 12/11/17 12/11/17 02:11 07:50 07:50 Creatine Kinase 73 CK-MB (CK-2) 0.91 1.42 Troponin I < 0.012 0.013 NT-Pro-B Natriuret Pep 12/11/17 12/11/17 13:57 13:57 Creatine Kinase 81 CK-MB (CK-2) 1.38 Troponin I < 0.012 NT-Pro-B Natriuret Pep Impressions: Abdomen MRI 12/10/17 00:00 IMPRESSION: LIMITED STUDY. SEVERAL ROUND MASSES IN THE LIVER CONSISTENT WITH METASTASES. ASCITES. THE STUDY COULD NOT BE COMPLETED DUE TO PATIENT CLAUSTROPHOBIA. THE STUDY WAS PERFORMED A STAT MRI AFTER HOURS AND SEDATION WAS UNAVAILABLE. Acute Abdomen Series 12/10/17 08:36 IMPRESSION: NO RADIOGRAPHIC EVIDENCE FOR ACUTE ABDOMINAL DISEASE. Lung Scan-VQ NM 12/10/17 13:03 IMPRESSION: NORMAL VENTILATION-PERFUSION LUNG SCAN. NEGATIVE FOR PULMONARY EMBOLI. Abdomen/Pelvis CT 12/11/17 00:00 IMPRESSION: Interval increase in the amount of intra-abdominal and pelvic ascitic fluid. The previously described omental caking is again identified. Other findings as noted above. Chest X-Ray 12/11/17 00:00 IMPRESSION: LOW LUNG VOLUMES. POSSIBLE ATELECTASIS OR DEVELOPING INFILTRATE IN THE LEFT LUNG BASE. Head CT 12/11/17 00:00 IMPRESSION: NORMAL BRAIN CT WITHOUT CONTRAST. EVIDENCE OF ACUTE STROKE: NO. Paracentesis Ultrasound 12/11/17 11:32 IMPRESSION: SUCCESSFUL ULTRASOUND GUIDED PARACENTESIS. Assessment & Plan - Diagnosis (1) Peritonitis Is this a current diagnosis for this admission?: Yes (2) Metabolic acidosis Is this a current diagnosis for this admission?: Yes (3) Hypoxemia Is this a current diagnosis for this admission?: Yes (4) Acute kidney injury Is this a current diagnosis for this admission?: Yes (5) Sepsis Qualifiers: Sepsis type: sepsis due to unspecified organism Qualified Code(s): A41.9 - Sepsis, unspecified organism Is this a current diagnosis for this admission?: Yes (6) Peritoneal carcinomatosis Is this a current diagnosis for this admission?: Yes
[2017-12-14] MEDS: HEPARIN SOD (PORCINE) 5,000 UNIT/ML 1 ML SYRINGE SUBCUT SCH ×3 (05:09→21:15)
[2017-12-14] MEDS: MORPHINE SULFATE 10 MG/ML INJ IV PRN ×3 (05:21→18:42)
[2017-12-15] MEDS: MORPHINE SULFATE 10 MG/ML INJ IV PRN ×2 (00:06→14:36)
[2017-12-15] MEDS: HEPARIN SOD (PORCINE) 5,000 UNIT/ML 1 ML SYRINGE SUBCUT SCH ×2 (05:11→14:00)
--- NOTE | 2017-12-15 21:12 | PDOC PROGRESS REPORT ---
Subjective Progress Note for:: 12/15/17 Subjective:: Patient's condition is about the same, hospice consultation will be requested, to have patient transferred to hospice home, she is presently comfort care life expectancy is less than 7 days, she will qualify for hospice facility Reason For Visit: PERITONITIS, INFECTION, CARCINOMATOSIS, METABOLIC Physical Exam Vital Signs: Temp Pulse Resp BP Pulse Ox 98.8 F 95 11 L 78/55 L 90 L 12/12/17 17:42 12/12/17 17:42 12/12/17 17:42 12/12/17 17:42 12/12/17 17:42 Intake & Output 12/14/17 12/15/17 12/16/17 06:59 06:59 06:59 Intake Total 555 2080 288 Output Total 475 900 250 Balance 80 1180 38 Weight 76.1 kg Results Laboratory Results: 12/11/17 02:11 12/11/17 11:11 12/11/17 14:30 Ascities Fluid Gram Stain - Final 12/11/17 14:30 Ascities Fluid Body Fluid Culture - Final NO AEROBIC OR ANAEROBIC ORGANISMS RECOVERED 12/10/17 12/10/17 12/11/17 19:57 19:57 02:11 Creatine Kinase 46 64 CK-MB (CK-2) 0.31 Troponin I < 0.012 NT-Pro-B Natriuret Pep 2840 H 12/11/17 12/11/17 12/11/17 02:11 07:50 07:50 Creatine Kinase 73 CK-MB (CK-2) 0.91 1.42 Troponin I < 0.012 0.013 NT-Pro-B Natriuret Pep 12/11/17 12/11/17 13:57 13:57 Creatine Kinase 81 CK-MB (CK-2) 1.38 Troponin I < 0.012 NT-Pro-B Natriuret Pep Impressions: Abdomen MRI 12/10/17 00:00 IMPRESSION: LIMITED STUDY. SEVERAL ROUND MASSES IN THE LIVER CONSISTENT WITH METASTASES. ASCITES. THE STUDY COULD NOT BE COMPLETED DUE TO PATIENT CLAUSTROPHOBIA. THE STUDY WAS PERFORMED A STAT MRI AFTER HOURS AND SEDATION WAS UNAVAILABLE. Acute Abdomen Series 12/10/17 08:36 IMPRESSION: NO RADIOGRAPHIC EVIDENCE FOR ACUTE ABDOMINAL DISEASE. Lung Scan-VQ NM 12/10/17 13:03 IMPRESSION: NORMAL VENTILATION-PERFUSION LUNG SCAN. NEGATIVE FOR PULMONARY EMBOLI. Abdomen/Pelvis CT 12/11/17 00:00 IMPRESSION: Interval increase in the amount of intra-abdominal and pelvic ascitic fluid. The previously described omental caking is again identified. Other findings as noted above. Chest X-Ray 12/11/17 00:00 IMPRESSION: LOW LUNG VOLUMES. POSSIBLE ATELECTASIS OR DEVELOPING INFILTRATE IN THE LEFT LUNG BASE. Head CT 12/11/17 00:00 IMPRESSION: NORMAL BRAIN CT WITHOUT CONTRAST. EVIDENCE OF ACUTE STROKE: NO. Paracentesis Ultrasound 12/11/17 11:32 IMPRESSION: SUCCESSFUL ULTRASOUND GUIDED PARACENTESIS. Assessment & Plan - Diagnosis (1) Peritonitis Is this a current diagnosis for this admission?: Yes (2) Metabolic acidosis Is this a current diagnosis for this admission?: Yes (3) Hypoxemia Is this a current diagnosis for this admission?: Yes (4) Acute kidney injury Is this a current diagnosis for this admission?: Yes (5) Sepsis Qualifiers: Sepsis type: sepsis due to unspecified organism Qualified Code(s): A41.9 - Sepsis, unspecified organism Is this a current diagnosis for this admission?: Yes (6) Peritoneal carcinomatosis Is this a current diagnosis for this admission?: Yes
[2017-12-15] MEDS ORDERED: LORAZEPAM INJ 2 MG/1 ML VIAL IV PRN (22:53)
[2017-12-16] MEDS: FENTANYL CITRATE INJ/PF 100 MCG/2 ML AMPUL IV PRN ×2 (05:38→15:55)
[2017-12-16 20:51] VITALS: BP 110/68
[2017-12-17] MEDS: FENTANYL CITRATE INJ/PF 100 MCG/2 ML AMPUL IV PRN (01:43)
--- NOTE | 2017-12-17 07:37 | Death Summary ---
Summary Date : 12/17/17 Time of :: 06:30 Resuscitation Status: Comfort Measures Only - Final Diagnosis (1) Peritoneal carcinomatosis Is this a current diagnosis for this admission?: Yes (2) Peritonitis Is this a current diagnosis for this admission?: Yes (3) Metabolic acidosis Is this a current diagnosis for this admission?: Yes (4) Hypoxemia Is this a current diagnosis for this admission?: Yes (5) Acute kidney injury Is this a current diagnosis for this admission?: Yes (6) Sepsis Is this a current diagnosis for this admission?: Yes Hospital Course:: Patient is 77-year-old female, she has history of type 2 diabetes mellitus, history of malignant neoplasm of the left breast that was treated successfully with chemotherapy, surgery and radiation therapy. She could emergency room for evaluation of abdominal pain on 12/07/2017. CAT scan of the abdomen and pelvis without contrast was done, it showed omental caking small amount of ascites the impression was that the finding was suspicious for peritoneal carcinomatosis consultation was requested from surgery, she has peritoneal signs suggesting fecal peritonitis, MRI of the abdomen was done without contrast that showed multiple masses in the liver subsequent CT scan with oral contrast was done he showed gastritis she underwent abdominal paracentesis, the findings was consistent with exudative ascites, the cytology was negative for malignant cells. After long discussion with family on the fact that she is a very poor prognosis due to peritoneal carcinomatosis she was made comfort care, she was on comfort care over the last few days, she today.
== END 2017-12-17 08:59 | DRG 871 ==
LOC: ER 07:22 → EH 18:54 → 3N 21:47 → ICU 12-11 09:25 → 4N 12-12 17:29
PROVIDERS: ADMIT Internal Medicine; ATTEND Internal Medicine
PROC: 0W9G3ZX Drainage of Peritoneal Cavity, Percutaneous Approach, Diagnostic (ICD-10-PCS; principal; 2017-12-11)
DX: A41.9 Sepsis, unspecified organism (principal); K65.9 Peritonitis, unspecified; R65.21 Severe sepsis with septic shock; C78.6 Secondary malignant neoplasm of retroperitoneum and peritoneum; N17.9 Acute kidney failure, unspecified; R18.8 Other ascites; E87.2 Acidosis; R09.02 Hypoxemia; I10 Essential (primary) hypertension; E11.9 Type 2 diabetes mellitus without complications; Z85.3 Personal history of malignant neoplasm of breast; Z79.84 Long term (current) use of oral hypoglycemic drugs; Z79.82 Long term (current) use of aspirin; Z79.899 Other long term (current) drug therapy
CPT/HCPCS: 36415; 36600; 49083; 51701; 70450; 71045; 74022; 74176; 74181; 76830; 78582; 80053; 80061; 81001; 82040; 82042; 82140; 82150; 82378; 82550; 82553; 82803; 82962; 83036; 83605; 83690; 83735; 83880; 84100; 84155; 84157; 84439; 84443; 84484; 85025; 85027; 85379; 85610; 85730; 87040; 87070; 87075; 87086; 87205; 88305; 89050; 93005; 93010; 93976; 94660; 96361; 96374; 96376; 99285; A9540; A9567; J1644; J2060; J2270; J2543; J3010; J3490; J7030; Q9969